=== PATIENT | female | born 1940 | race Caucasian/White ===

== ENCOUNTER 2016-04-19 09:14 | Outpatient (CLI) | payer MEDICARE, OTHER | END 2016-04-19 09:15 | disposition home or self-care (01) | DX: M85.88 Other specified disorders of bone density and structure, other site (principal) ==

== ENCOUNTER 2016-12-24 09:44 | Outpatient (CLI) | payer MEDICARE, OTHER ==
[2016-12-24 13:43] LABS: BASOPHILS % (AUTO) 0.4 %; EOSINOPHILS # (AUTO) 0.1 10^3/uL (0.0-0.7); EOSINOPHILS % (AUTO) 2.8 %; HCT - HEMATOCRIT 41.3 % (37.0-47.0); HGB - HEMOGLOBIN 13.9 g/dL (12.0-16.0); LYMPHOCYTES % (AUTO) 19.8 %; MEAN CORPUSCULAR HEMOGLOBIN 29.8 pg (27.0-31.0); MEAN CORPUSCULAR HGB CONC 33.6 g/dL (32.0-36.0); MEAN CORPUSCULAR VOLUME 88.6 fL (81.0-99.0); MONOCYTES # (AUTO) 0.4 10^3/uL (0.0-1.0); MONOCYTES % (AUTO) 7.8 %; NEUTROPHILS # (AUTO) 3.6 10^3/uL (1.5-6.6); NEUTROPHILS % (AUTO) 69.2 %; NUCLEATED RED BLOOD CELLS AUTO 0.1 /100WBC; RED BLOOD COUNT 4.66 10^6/uL (4.20-5.40); RED CELL DISTRIBUTION WIDTH 13.1 % (12.0-15.0); UNCORRECTED WHITE BLOOD COUNT 5.3 x10^3/uL; WHITE BLOOD COUNT 5.3 x10^3/uL (4.8-10.8)
[2016-12-24 13:58] LABS: ALBUMIN/GLOBULIN RATIO 1.5 (1.0-2.2); BILIRUBIN,TOTAL 0.7 mg/dL (0.2-1.0); CREATININE 0.6 mg/dL (0.4-1.0); TOTAL PROTEIN 7.2 g/dL (6.7-8.2)
[2016-12-24 14:54] LABS: HEMOGLOBIN A1C 0.57 g/dL
== END 2016-12-24 09:45 | disposition home or self-care (01) ==
LOC: LAB.WCP 09:44
PROVIDERS: ATTEND Family Medicine
DX: R73.01 Impaired fasting glucose (principal); Z79.899 Other long term (current) drug therapy
CPT/HCPCS: 36415; 80053; 83036; 85025

== ENCOUNTER 2017-01-23 10:07 | Outpatient (CLI) | payer MEDICARE, OTHER ==
--- NOTE | 2017-01-25 14:28 | Mammography Report ---
DIGITAL SCREENING MAMMOGRAM: 01/23/2017 CLINICAL INDICATION: A 76-year-old, for screening. COMPARISON: 01/2016, 04/2014, 03/2013, 03/2012, 03/2011, 02/2010. TECHNIQUE: Routine CC and MLO projections were obtained of the breasts. FINDINGS: Scattered fibroglandular tissue is present within the breasts. There are no dominant abner s, suspicious microcalcifications, or secondary signs of malignancy. In comparison to the previous st udies, there are no significant changes. ASSESSMENT: NO MAMMOGRAPHIC EVIDENCE OF MALIGNANCY. NO SIGNIFICANT INTERVAL CHANGES. RECOMMENDATION: Screening mammography is recommended annually. BIRADS category 1 - negative. STANDARD QUALIFYING STATEMENTS 1. This examination was reviewed with the aid of Computed-Aided Detection (CAD). 2. A negative or benign imaging report should not delay biopsy if clinically suspicious findings are present. Consider surgical consultation if warranted. More than 5% of cancers are not identified by i maging. 3. Dense breasts may obscure an underlying neoplasm. JOB #: [id number] EXT JOB #:[id number]
== END 2017-01-23 10:08 | disposition home or self-care (01) ==
LOC: DI.N 10:07
PROVIDERS: ATTEND Family Medicine
DX: Z12.31 Encounter for screening mammogram for malignant neoplasm of breast (principal)
CPT/HCPCS: 77067

== ENCOUNTER 2017-05-06 16:25 | Outpatient (CLI) | payer MEDICARE, OTHER | END 2017-05-06 16:26 | disposition home or self-care (01) | LOC: LAB.R 16:25 | PROVIDERS: ATTEND Family Medicine | DX: R10.9 Unspecified abdominal pain (principal) | CPT/HCPCS: 87086 ==

== ENCOUNTER 2017-05-13 14:49 | Outpatient (CLI) | payer MEDICARE, OTHER ==
--- NOTE | 2017-05-13 16:06 | CT Report ---
CT OF THE ABDOMEN AND PELVIS WITHOUT CONTRAST: 05/13/2017 INDICATION: Right flank pain, hematuria. TECHNIQUE: Axial CT images of the abdomen and pelvis were obtained without oral or intravenous contrast. No previous CT is available for comparison. FINDINGS: Limited evaluation of the lung bases demonstrates a moderate hiatal hernia. ABDOMEN: There is marked right hydronephrosis and hydroureter. An 1 mm calculus is seen in the upper pole of the right kidney. The left kidney demonstrates parapelvic cysts. Allowing for the lack of intravenous contrast enhancement, the liver demonstrates a likely cyst in the lateral left lobe. The spleen, pancreas and adrenal glands are unremarkable. The gallbladder is not dilated. No bowel dilatation, free gas, or free fluid is present. No abdominal adenopathy is seen. PELVIS: Right hydroureter continues to the bladder base, where there are two calculi in the distal right ureter, the more inferior measuring 7 mm and the more superior measuring 5 mm. Otherwise, the pelvic organs are unremarkable. Sigmoid diverticulosis is present, without CT evidence of diverticulitis. The appendix is seen in the right lower quadrant, and is normal in caliber. Osseous structures demonstrate degenerative changes. IMPRESSION: 1. RIGHT HYDRONEPHROSIS AND HYDROURETER, WITH TWO DISTAL RIGHT URETERIC STONES PRESENT, THE LARGER MEASURING 7 MM AND THE SMALLER MEASURING 5 MM. 2. MODERATE HIATAL HERNIA. 3. DIVERTICULOSIS WITHOUT CT EVIDENCE OF DIVERTICULITIS. In accordance with CT protocol optimization, one or more of the following dose reduction techniques were utilized for this exam: automated exposure control, adjustment of mA and/or KV based on patient size, or use of iterative reconstructive technique. TD: 05/13/2017 16:03
== END 2017-05-13 14:50 | disposition home or self-care (01) ==
LOC: DI 14:49
PROVIDERS: ATTEND Family Medicine
DX: N13.2 Hydronephrosis with renal and ureteral calculous obstruction (principal); K44.9 Diaphragmatic hernia without obstruction or gangrene; K57.30 Diverticulosis of large intestine without perforation or abscess without bleeding; R31.9 Hematuria, unspecified
CPT/HCPCS: 74176

== ENCOUNTER 2017-05-14 11:15 | Outpatient (CLI) | payer MEDICARE, OTHER | END 2017-05-14 11:16 | disposition home or self-care (01) | LOC: DI 11:15 | PROVIDERS: ATTEND Family Medicine | DX: I51.7 Cardiomegaly (principal) | CPT/HCPCS: 93306 ==

== ENCOUNTER 2017-05-24 16:57 | Outpatient (CLI) | payer MEDICARE, OTHER ==
--- NOTE | 2017-05-24 22:07 | Ultrasound Report ---
EXAM: RENAL ULTRASOUND EXAM DATE: 05/24/2017 05:50 PM. CLINICAL HISTORY: URETERAL CALCULUS. COMPARISON: 05/13/2017 CT. TECHNIQUE: Real-time scanning was performed with static images obtained. FINDINGS: Right Kidney: 11.6 x 4.9 x 5.2 cm. Normal echotexture with no stones, contour-deforming masses, or hy dronephrosis. Hydronephrosis seen on prior CT has resolved. Simple cyst measuring 1.2 cm. Left Kidney: 12.3 x 6.0 x 6.2 cm. Mild hydronephrosis. Normal echotexture with no stones or contour-d eforming masses. Bladder: Bilateral jets seen. The prevoid bladder volume was 45.8 cc. The postvoid bladder volume was 0 cc. Stone dependently within the bladder measures up to 1.5 cm. Other: None. IMPRESSION: 1. Right hydronephrosis has resolved since the CT of 05/13/2017. There is stone dependently in the bl adder that was likely the previous obstructing right ureteral stone. 2. Mild left hydronephrosis as before. [facility] Referring Provider Line: [phone] SITE ID: [id number]
== END 2017-05-24 16:58 | disposition home or self-care (01) ==
LOC: DI 16:57
PROVIDERS: ATTEND Physician Assistant
DX: N13.30 Unspecified hydronephrosis (principal); N21.0 Calculus in bladder
CPT/HCPCS: 76770

== ENCOUNTER 2018-04-15 12:16 | Outpatient (CLI) | payer MEDICARE, OTHER ==
--- NOTE | 2018-04-16 10:05 | Mammography Report ---
Reason: SCREENING MAMMO Procedure Date: 04/15/2018 Accession Number: [id number] / [id number] Procedure: [facility] - Screening Mammo w/[place] CPT Code: FULL RESULT: EXAM: Screening Mammo w/[place] DATE: 04/15/2018 12:51 PM CLINICAL HISTORY: Screening encounter. No reported risk factors. TECHNIQUE: Bilateral CC and MLO views were obtained. COMPARISON: 01/23/2017 through 04/16/2013. FINDINGS: The breasts demonstrate diffuse fatty replacement bilaterally. No suspicious masses, clustered microcalcifications, or regions of architectural distortion are identified. IMPRESSION: Negative examination RECOMMENDATION: Routine annual screening unless otherwise clinically indicated. BIRADS CATEGORY 1: Negative STANDARD QUALIFYING STATEMENTS: 1. This examination was not reviewed with the aid of Computer-Aided Detection (CAD). 2. A negative or benign imaging report should not preclude biopsy if clinically suspicious findings are present. 3. Dense breasts may obscure an underlying neoplasm. 4. This examination was reviewed with the aid of 3D breast imaging (tomosynthesis).
== END 2018-04-15 12:17 | disposition home or self-care (01) ==
LOC: DI 12:16
DX: Z12.31 Encounter for screening mammogram for malignant neoplasm of breast (principal)
CPT/HCPCS: 77063; 77067

== ENCOUNTER 2018-12-23 08:00 | Outpatient (CLI) | payer MEDICARE, OTHER ==
[2018-12-23 18:41] LABS: BASOPHILS % (AUTO) 0.6 %; EOSINOPHILS # (AUTO) 0.1 10^3/uL (0.0-0.7); EOSINOPHILS % (AUTO) 2.7 %; HGB - HEMOGLOBIN 14.2 g/dL (12.0-16.0); LYMPHOCYTES # (AUTO) 1.1 10^3/uL (1.5-3.5); LYMPHOCYTES % (AUTO) 21.5 %; MEAN CORPUSCULAR HEMOGLOBIN 29.3 pg (27.0-31.0); MEAN CORPUSCULAR HGB CONC 30.9 g/dL (32.0-36.0); MEAN CORPUSCULAR VOLUME 94.8 fL (81.0-99.0); MEAN PLATELET VOLUME 10.7 fL (7.9-10.8); MONOCYTES # (AUTO) 0.5 10^3/uL (0.0-1.0); MONOCYTES % (AUTO) 8.8 %; NEUTROPHILS # (AUTO) 3.4 10^3/uL (1.5-6.6); NEUTROPHILS % (AUTO) 66.2 %; PLT - PLATELET COUNT 246 10^3/uL (130-450); RED BLOOD COUNT 4.85 10^6/uL (4.20-5.40); WHITE BLOOD COUNT 5.1 x10^3/uL (4.8-10.8)
[2018-12-23 19:01] LABS: HB2 TOTAL 15.2 g/dL; HEMOGLOBIN A1C 0.54 g/dL; HEMOGLOBIN A1C % 5.4 % (4.6-6.2)
[2018-12-23 19:04] LABS: ALBUMIN 4.4 g/dL (3.2-5.5); ALBUMIN/GLOBULIN RATIO 1.8 (1.0-2.2); BILIRUBIN,TOTAL 0.9 mg/dL (0.2-1.0); CREATININE 0.7 mg/dL (0.4-1.0); TOTAL PROTEIN 6.9 g/dL (6.7-8.2)
== END 2018-12-23 23:59 | disposition home or self-care (01) ==
LOC: LAB.WCP 08:00
PROVIDERS: ATTEND Family Medicine
DX: R73.01 Impaired fasting glucose (principal); M85.80 Other specified disorders of bone density and structure, unspecified site
CPT/HCPCS: 36415; 80053; 83036; 85025

== ENCOUNTER 2019-03-26 09:06 | Outpatient (CLI) | payer MEDICARE, OTHER ==
--- NOTE | 2019-03-27 15:05 | Mammography Report ---
Reason: ROUTINE MAMMO Procedure Date: 03/26/2019 Accession Number: [id number] / [id number] Procedure: [facility] - Screening Mammo Dig Bilat CPT Code: Final Report FULL RESULT: EXAM: Screening Mammo Dig Bilat DATE: 03/26/2019 9:42 AM CLINICAL HISTORY: The patient is a 78-year-old asymptomatic female. Second degree family history breast cancer. TECHNIQUE: (B) - Bilateral CC and MLO views were obtained. COMPARISON: 01/23/2017, 01/20/2016, 04/23/2014, 04/16/2013 PARENCHYMAL PATTERN: (A) - The breasts demonstrate scattered fibroglandular densities bilaterally. FINDINGS: The pattern of nodular asymmetry is stable given positional variation. There are no suspicious masses, calcifications, or areas of distortion. IMPRESSION: Negative examination. BI-RADS category 1. RECOMMENDATION: (ANNUAL) - Recommend routine annual screening mammography. BI-RADS CATEGORY: (1) - Negative. STANDARD QUALIFYING STATEMENTS: A negative or benign imaging report should not preclude biopsy if clinically suspicious findings are present. Dense breasts may obscure an underlying neoplasm.
== END 2019-03-26 09:07 | disposition home or self-care (01) ==
LOC: DI.N 09:06
DX: Z12.31 Encounter for screening mammogram for malignant neoplasm of breast (principal); Z80.3 Family history of malignant neoplasm of breast
CPT/HCPCS: 77067

== ENCOUNTER 2019-11-12 07:00 | Outpatient (CLI) | payer MEDICARE, OTHER ==
[2019-11-12 18:06] LABS: BASOPHILS % (AUTO) 0.7 %; EOSINOPHILS # (AUTO) 0.2 10^3/uL (0.0-0.7); EOSINOPHILS % (AUTO) 3.9 %; HGB - HEMOGLOBIN 14.3 g/dL (12.0-16.0); LYMPHOCYTES % (AUTO) 17.8 %; MEAN CORPUSCULAR HEMOGLOBIN 29.4 pg (27.0-31.0); MEAN CORPUSCULAR HGB CONC 31.4 g/dL (32.0-36.0); MEAN CORPUSCULAR VOLUME 93.8 fL (81.0-99.0); MONOCYTES # (AUTO) 0.5 10^3/uL (0.0-1.0); MONOCYTES % (AUTO) 9.2 %; NEUTROPHILS # (AUTO) 3.7 10^3/uL (1.5-6.6); NEUTROPHILS % (AUTO) 68.2 %; PLT - PLATELET COUNT 253 10^3/uL (130-450); RED BLOOD COUNT 4.86 10^6/uL (4.20-5.40); RED CELL DISTRIBUTION WIDTH 12.8 % (12.0-15.0); WHITE BLOOD COUNT 5.4 x10^3/uL (4.8-10.8)
[2019-11-12 18:24] LABS: ALBUMIN 4.2 g/dL (3.2-5.5); ALBUMIN/GLOBULIN RATIO 1.6 (1.0-2.2); BILIRUBIN,TOTAL 0.9 mg/dL (0.2-1.0); CALCIUM 9.2 mg/dL (8.5-10.3); CREATININE 0.7 mg/dL (0.4-1.0); TOTAL PROTEIN 6.9 g/dL (6.7-8.2)
== END 2019-11-12 23:59 | disposition home or self-care (01) ==
LOC: LAB.WCP 07:00
PROVIDERS: ATTEND Family Medicine
DX: R19.7 Diarrhea, unspecified (principal); Z20.828 Contact with and (suspected) exposure to other viral communicable diseases
CPT/HCPCS: 36415; 80053; 83516; 83690; 85025; 86255; U0004; 81599

== ENCOUNTER 2019-11-12 13:25 | Outpatient (CLI) | payer MEDICARE, OTHER | END 2019-11-12 23:59 | disposition home or self-care (01) | LOC: LAB.R 13:25 | PROVIDERS: ATTEND Family Medicine | DX: R19.7 Diarrhea, unspecified (principal); Z20.828 Contact with and (suspected) exposure to other viral communicable diseases ==

== ENCOUNTER 2019-12-03 12:45 | Outpatient (CLI) | payer MEDICARE, OTHER | END 2019-12-03 23:59 | disposition home or self-care (01) | LOC: LAB.R 12:45 | PROVIDERS: ATTEND Family Medicine | DX: N39.0 Urinary tract infection, site not specified (principal) | CPT/HCPCS: 87086; 87181 ==

== ENCOUNTER 2020-03-29 09:17 | Outpatient (CLI) | payer MEDICARE, OTHER ==
--- NOTE | 2020-03-30 12:59 | Mammography Report ---
BILATERAL DIGITAL SCREENING MAMMOGRAM 3D/2D: 03/29/2020 CLINICAL: Routine screening. Comparison is made to exams dated: 03/26/2019 mammogram, 04/15/2018 mammogram, 01/23/2017 mammogram, 01/20/2016 mammogram, 04/23/2014 mammogram, and 04/16/2013 mammogram - [facility]. There are scattered fibroglandular elements in both breasts. No significant masses, calcifications, or other findings are seen in either breast. There has been no significant interval change. IMPRESSION: NEGATIVE There is no mammographic evidence of malignancy. A 1 year screening mammogram is recommended. This exam was interpreted at Station ID: [id number]. NOTE: For mammograms, a report in lay terms will be sent to the patient. Approximately 15% of breast malignancies will not be visualized mammographically. In the management of a palpable breast mass, a negative mammogram must not discourage biopsy of a clinically suspicious lesion. Electronically Signed By: Ryan davis/laurie:03/29/2020 11:57:12 ACR BI-RADS Category 1: Negative 3341F PARENCHYMAL PATTERN: (A) - The breast(s) demonstrate(s) scattered fibroglandular densities. BI-RADS CATEGORY: (1) - 1 RECOMMENDATION: (ANNUAL) - Recommend routine annual screening mammography. [id number] 1 year screening LATERALITY: (B)
== END 2020-03-29 09:18 | disposition home or self-care (01) ==
LOC: DI.N 09:17
DX: Z12.31 Encounter for screening mammogram for malignant neoplasm of breast (principal)
CPT/HCPCS: 77067

== ENCOUNTER 2020-05-02 08:00 | Outpatient (CLI) | payer MEDICARE, OTHER | END 2020-05-02 23:59 | disposition home or self-care (01) | LOC: LAB.WCP 08:00 | PROVIDERS: ATTEND Family Medicine | DX: N39.0 Urinary tract infection, site not specified (principal) | CPT/HCPCS: 87086; 87181 ==

== ENCOUNTER 2020-06-25 10:14 | Outpatient (CLI) | payer MEDICARE, OTHER | END 2020-06-25 23:59 | disposition home or self-care (01) | LOC: LAB.R 10:14 | PROVIDERS: ATTEND Family Medicine | DX: N39.0 Urinary tract infection, site not specified (principal) | CPT/HCPCS: 87086; 87181 ==

== ENCOUNTER 2020-08-02 08:00 | Outpatient (CLI) | payer MEDICARE, OTHER ==
[2020-08-02 18:03] LABS: BASOPHILS % (AUTO) 0.8 %; EOSINOPHILS # (AUTO) 0.1 10^3/uL (0.0-0.7); EOSINOPHILS % (AUTO) 2.7 %; HGB - HEMOGLOBIN 13.8 g/dL (12.0-16.0); LYMPHOCYTES # (AUTO) 1.1 10^3/uL (1.5-3.5); LYMPHOCYTES % (AUTO) 20.9 %; MEAN CORPUSCULAR HEMOGLOBIN 29.3 pg (27.0-31.0); MEAN CORPUSCULAR HGB CONC 30.7 g/dL (32.0-36.0); MEAN CORPUSCULAR VOLUME 95.5 fL (81.0-99.0); MEAN PLATELET VOLUME 10.9 fL (7.9-10.8); MONOCYTES # (AUTO) 0.5 10^3/uL (0.0-1.0); MONOCYTES % (AUTO) 9.5 %; NEUTROPHILS # (AUTO) 3.4 10^3/uL (1.5-6.6); NEUTROPHILS % (AUTO) 65.7 %; PLT - PLATELET COUNT 246 10^3/uL (130-450); RED BLOOD COUNT 4.71 10^6/uL (4.20-5.40); RED CELL DISTRIBUTION WIDTH 12.8 % (12.0-15.0); WHITE BLOOD COUNT 5.2 x10^3/uL (4.8-10.8)
[2020-08-02 18:17] LABS: ALBUMIN 4.2 g/dL (3.2-5.5); ALBUMIN/GLOBULIN RATIO 1.6 (1.0-2.2); ALKALINE PHOSPHATASE 61 IU/L (42-121); ALT ALANINE AMINOTRANSFERASE 12 IU/L (10-60); AST ASPARTATE AMINOTRANSFERASE 22 IU/L (10-42); BILIRUBIN,TOTAL 1.2 mg/dL (0.2-1.0); BUN - BLOOD UREA NITROGEN 13 mg/dL (6-20); CALCIUM 9.1 mg/dL (8.5-10.3); CARBON DIOXIDE - CO2 28 mmol/L (21-32); CHLORIDE 104 mmol/L (101-111); CHOL/HDL RATIO 2.8 (<4.4); CHOLESTEROL 181 mg/dL; CREATININE 0.7 mg/dL (0.4-1.0); GFR - MDRD 80 (>89); GLUCOSE 89 mg/dL (70-100); HDL CHOLESTEROL 65 mg/dL; LDL CHOLESTEROL,CALCULATED 85 mg/dL; LDL/HDL RATIO 1.3 (<4.4); POTASSIUM 4.3 mmol/L (3.5-5.0); SODIUM 141 mmol/L (135-145); TOTAL PROTEIN 6.8 g/dL (6.7-8.2); TRIGLYCERIDES 156 mg/dL; VLDL CHOLESTEROL 31 mg/dL
[2020-08-02 20:07] LABS: ESTIMATED AVERAGE GLUCOSE 111 mg/dL (70-100); HEMOGLOBIN A1c% 5.5 % (4.27-6.07)
== END 2020-08-02 23:59 | disposition home or self-care (01) ==
LOC: LAB.WCP 08:00
PROVIDERS: ATTEND Family Medicine
DX: R03.0 Elevated blood-pressure reading, without diagnosis of hypertension (principal); R73.01 Impaired fasting glucose
CPT/HCPCS: 36415; 80053; 80061; 83036; 83721; 85025

== ENCOUNTER 2022-04-25 10:48 | Outpatient (CLI) | payer MEDICARE, OTHER ==
--- NOTE | 2022-04-26 08:25 | Mammography Report ---
BILATERAL DIGITAL SCREENING MAMMOGRAM 3D/2D: 04/25/2022 CLINICAL: Routine screening. Comparison is made to exams dated: 03/29/2020 mammogram, 03/26/2019 mammogram, 04/15/2018 mammogram, 01/23/2017 mammogram, 01/20/2016 mammogram, and 04/23/2014 mammogram - [facility]. Both breasts are almost entirely fatty (category a/<25% glandular tissue). There are benign calcifications in the left breast. No significant masses, calcifications, or other findings are seen in either breast. There has been no significant interval change. IMPRESSION: BENIGN There is no mammographic evidence of malignancy. A 1 year screening mammogram is recommended. Based on the Tyrer Cuzick model (a risk assessment model) the patients lifetime risk is 0.5% and her 10 year risk is 0.0%. According to the ACR, ACS, and NCCN guidelines, an annual breast MRI exam darío g with mammogram is recommended if the patients lifetime risk is 20% or greater. This exam was interpreted at Station ID: [id number]. NOTE: For mammograms, a report in lay terms will be sent to the patient. Approximately 15% of breast malignancies will not be visualized mammographically. In the management of a palpable breast mass, a negative mammogram must not discourage biopsy of a clinically suspicious lesion. Electronically Signed By: Charleen casas/laurie:04/25/2022 15:48:04 ACR BI-RADS Category 2: Benign Finding(s) 3342F PARENCHYMAL PATTERN: (F) - The breast(s) demonstrate(s) diffuse fatty replacement. BI-RADS CATEGORY: (2) - 2 RECOMMENDATION: (ANNUAL) - Recommend routine annual screening mammography. [id number] 1 year screening LATERALITY: (B)
== END 2022-04-25 10:49 | disposition home or self-care (01) ==
LOC: DI.N 10:48
DX: Z12.31 Encounter for screening mammogram for malignant neoplasm of breast (principal)

== ENCOUNTER 2022-04-25 11:17 | Outpatient (CLI) | payer MEDICARE, OTHER ==
[2022-04-25 17:51] LABS: BASOPHILS % (AUTO) 0.7 %; EOSINOPHILS # (AUTO) 0.2 10^3/uL (0.0-0.7); EOSINOPHILS % (AUTO) 2.6 %; HCT - HEMATOCRIT 44.4 % (37.0-47.0); LYMPHOCYTES # (AUTO) 1.1 10^3/uL (1.5-3.5); LYMPHOCYTES % (AUTO) 19.7 %; MEAN CORPUSCULAR HEMOGLOBIN 29.5 pg (27.0-31.0); MEAN CORPUSCULAR HGB CONC 31.5 g/dL (32.0-36.0); MEAN CORPUSCULAR VOLUME 93.7 fL (81.0-99.0); MEAN PLATELET VOLUME 11.2 fL (7.9-10.8); MONOCYTES # (AUTO) 0.5 10^3/uL (0.0-1.0); MONOCYTES % (AUTO) 8.5 %; NEUTROPHILS # (AUTO) 3.9 10^3/uL (1.5-6.6); NEUTROPHILS % (AUTO) 68.3 %; PLT - PLATELET COUNT 294 10^3/uL (130-450); RED BLOOD COUNT 4.74 10^6/uL (4.20-5.40); RED CELL DISTRIBUTION WIDTH 12.7 % (12.0-15.0); WHITE BLOOD COUNT 5.7 x10^3/uL (4.8-10.8)
[2022-04-25 18:10] LABS: ALBUMIN 4.1 g/dL (3.2-5.5); ALBUMIN/GLOBULIN RATIO 1.3 (1.0-2.2); ALKALINE PHOSPHATASE 50 IU/L (42-121); ALT ALANINE AMINOTRANSFERASE 10 IU/L (10-60); AST ASPARTATE AMINOTRANSFERASE 22 IU/L (10-42); BILIRUBIN,TOTAL 1.2 mg/dL (0.2-1.0); BUN - BLOOD UREA NITROGEN 17 mg/dL (6-20); CARBON DIOXIDE - CO2 31 mmol/L (21-32); CHLORIDE 105 mmol/L (101-111); CHOL/HDL RATIO 2.6 (<4.4); CHOLESTEROL 148 mg/dL; CREATININE 0.7 mg/dL (0.4-1.0); GFR - MDRD 80 (>89); GLUCOSE 97 mg/dL (70-100); HDL CHOLESTEROL 57 mg/dL; LDL CHOLESTEROL,CALCULATED 73 mg/dL; LDL/HDL RATIO 1.3 (<4.4); POTASSIUM 4.1 mmol/L (3.5-5.0); SODIUM 143 mmol/L (135-145); TOTAL PROTEIN 7.2 g/dL (6.7-8.2); TRIGLYCERIDES 91 mg/dL; VLDL CHOLESTEROL 18 mg/dL
[2022-04-25 18:18] LABS: THYROID STIMULATING HORMONE 2.15 uIU/mL (0.34-5.60)
== END 2022-04-25 11:18 | disposition home or self-care (01) ==
LOC: LAB.N 11:17
PROVIDERS: ATTEND Physician Assistant
DX: E78.1 Pure hyperglyceridemia (principal); M85.80 Other specified disorders of bone density and structure, unspecified site; K21.9 Gastro-esophageal reflux disease without esophagitis
CPT/HCPCS: 36415; 80053; 80061; 83721; 84443; 85025

== ENCOUNTER 2023-01-16 10:32 | Outpatient (CLI) | payer MEDICARE, OTHER | END 2023-01-16 10:33 | disposition critical access hospital (66) | LOC: EMS 10:32 | DX: R47.81 Slurred speech (principal); R26.9 Unspecified abnormalities of gait and mobility | CPT/HCPCS: A0425; A0429 ==

== ENCOUNTER 2023-01-16 10:48 | Inpatient (IN) | payer MEDICARE, OTHER ==
--- NOTE | 2023-01-16 11:23 | CT Report ---
PROCEDURE: Head W/O Stroke Protocol INDICATIONS: L sided symptoms and dysarthria TECHNIQUE: Noncontrast 4.5 mm thick angled axial sections acquired from the foramen magnum to the vertex, with c oronal reformats. For radiation dose reduction, the following was used: automated exposure control, adjustment of mA and/or kV according to patient size. COMPARISON: None. FINDINGS: Image quality: Excellent. CSF spaces: Basal cisterns are patent. No extra-axial fluid collections. Ventricles are normal in size and shape. Brain: No midline shift. No intracranial masses or hemorrhage. [place]-white matter interface is norm al. Subcortical and periventricular hypodensities are consistent with microvascular ischemic disease and age-related cerebral volume loss. Skull and face: Calvarium and visualized facial bones are intact, without suspicious lesions. Sinuses: Visualized sinuses and mastoids are clear. IMPRESSION: 1. No acute intracranial abnormality. 2. Microvascular ischemic disease and age-related cerebral volume loss. This study fulfills neurological imaging criteria for inclusion or exclusion of acute stroke therapie s based on available published neurological imaging guidelines. Reviewed by: Yair Maier on 01/16/2023 11:22 AM PDT Approved by: Yair Maier on 01/16/2023 11:22 AM PDT Station ID: [id number]
[2023-01-16 11:25] LABS: BASOPHILS % (AUTO) 0.9 %; EOSINOPHILS # (AUTO) 0.1 10^3/uL (0.0-0.7); EOSINOPHILS % (AUTO) 2.9 %; HCT - HEMATOCRIT 42.7 % (37.0-47.0); HGB - HEMOGLOBIN 13.7 g/dL (12.0-16.0); LYMPHOCYTES # (AUTO) 0.8 10^3/uL (1.5-3.5); LYMPHOCYTES % (AUTO) 18.1 %; MEAN CORPUSCULAR HEMOGLOBIN 29.5 pg (27.0-31.0); MEAN CORPUSCULAR HGB CONC 32.1 g/dL (32.0-36.0); MONOCYTES # (AUTO) 0.4 10^3/uL (0.0-1.0); MONOCYTES % (AUTO) 9.7 %; NEUTROPHILS # (AUTO) 3.1 10^3/uL (1.5-6.6); NEUTROPHILS % (AUTO) 68.2 %; PLT - PLATELET COUNT 228 10^3/uL (130-450); RED BLOOD COUNT 4.64 10^6/uL (4.20-5.40); RED CELL DISTRIBUTION WIDTH 12.3 % (12.0-15.0); WHITE BLOOD COUNT 4.5 x10^3/uL (4.8-10.8)
--- NOTE | 2023-01-16 11:35 | CT Report ---
PROCEDURE: CT Angio Head/Neck INDICATIONS: L sided symptoms and dysarthria TECHNIQUE: PROCEDURE: CT Angio Head/Neck INDICATIONS: L sided symptoms and dysarthria CONTRAST: 80ml Omni 300 TECHNIQUE: After the administration of intravenous contrast, 1 mm thick sections acquired through the [place]. Postcontrast 4.5 mm thick sections then re-acquired from the foramen magnum to the vertex. 3-dimensional lbecofq-kjnstsacg-daslxprzof (MIP) and/or volume rendering reformats were acquired of [facility] central intracranial vasculature. For radiation dose reduction, the following was used: automate d exposure control, adjustment of mA and/or kV according to patient size. COMPARISON: CT head dated 01/16/2023 FINDINGS: Image quality: Diagnostic. Anterior circulation: Intracranial internal carotid arteries are normal in size and flow. The flow within the paired anterior cerebral arteries is normal and symmetric. The flow within the middle cer ebral arteries is normal and symmetric. The anterior communicating artery is seen. No aneurysms are seen. Posterior circulation: Visualized portions of the vertebral arteries demonstrate normal caliber, and join to form a normal appearing basilar artery. The left vertebral artery is dominant. Flow within [facility] posterior cerebral arteries is normal and symmetric. No aneurysms are seen. CSF spaces: Ventricles are normal in size and shape. Basal cisterns are patent. No extra-axial flu id collections. Brain: No midline shift. No intracranial bleeds or masses. [place]-white matter interface appears int act. Skull and face: Calvarium and facial bones appear intact, without suspicious lesions. Sinuses: Visualized sinuses and mastoids are clear. Lung apices: Bilateral apical scarring. IMPRESSION: PICC line 1. No large vessel occlusion. 2. CTA of the head and neck demonstrate no significant stenosis. No aneurysm or dissection. Reviewed by: Yair Maier on 01/16/2023 11:34 AM PDT Approved by: Yari Maier on 01/16/2023 11:34 AM PDT Station ID: [id number]
[2023-01-16 11:42] LABS: ALBUMIN 3.9 g/dL (3.2-5.5); BILIRUBIN,TOTAL 0.8 mg/dL (0.2-1.0); CALCIUM 8.9 mg/dL (8.5-10.3); CREATININE 0.7 mg/dL (0.6-1.3); POTASSIUM 3.8 mmol/L (3.5-4.5); TOTAL PROTEIN 5.9 g/dL (6.4-8.9)
--- NOTE | 2023-01-16 12:05 | ED Physician Documentation ---
PD HPI FOCAL NEURO - Stated complaint Stated Complaint: CODE STROKE - Chief complaint Chief Complaint: Neuro - History obtained from History obtained from: Patient - History of Present Illness Timing - onset: Enter time (729), Today Timing - duration: Hours Timing - details: Still present Time of symptom onset unknown: Time of onset unknown Severity of deficit: Moderate Weakness: Arm, Leg, Left Associated symptoms: No: Headache, Nausea / vomiting, Seizure, Syncope, Fall, Head injury, Chest pain, Neck pain, Back pain, Fever Baseline status: positive: A&OX3, ambulatory, indep Similar symptoms before: Has not had sx before Recently seen: Not recently seen - Additional information Additional information: Tatianna Xie is an 82-year-old female who lives alone and she indicates that last night she was able to drive to the store she felt a little bit off driving home from the store she went to purchase candy for holding she did not get any visitors she had to get up from her chair multiple times to go to the bathroom and this morning when she awoke she felt that she was having a difficult time with weakness on the left side she found that she was unable to walk down the lucio without holding onto the wall. She noted her speech to be slurred she is able to understand and speak what she was trying to speak but the words came out slurred. She noticed this about 7:30 in the morning she eventually called the ambulance and was brought to the hospital with slurred speech and left-sided weakness. Her weakness is subtle but she is not able to stand and walk without assistance. . Review of Systems Constitutional: denies: Fever Ears: denies: Ear pain Nose: denies: Congestion Throat: denies: Sore throat Cardiac: denies: Chest pain / pressure, Palpitations Respiratory: denies: Dyspnea, Cough GI: denies: Abdominal Pain, Nausea, Vomiting, Constipation, Diarrhea : denies: Dysuria, Frequency Skin: denies: Rash Musculoskeletal: denies: Neck pain, Back pain, Extremity pain Neurologic: reports: Focal weakness, Difficulty speaking. denies: Generalized weakness, Numbness, Confused, Altered mental status, Headache, Head injury, LOC PD PAST MEDICAL HISTORY - Past Medical History Past Medical History: Yes GI: GERD - Past Surgical History Past Surgical History: Yes - Present Medications Home Medications: Ambulatory Orders Medication Instructions Recorded Confirmed Omeprazole [PriLOSEC] 20 mg PO DAILY 08/14/14 01/16/23 - Allergies Allergies/Adverse Reactions: Allergies Allergy/AdvReac Type Severity Reaction Status Date / Time Penicillins Allergy Rash Verified 01/16/23 11:19 - Social History Does the pt smoke?: No Smoking Status: Never smoker Does the pt drink ETOH?: Yes Does the pt have substance abuse?: No - Immunizations Immunizations are current?: Yes Immunizations: TDAP >10years/unknown - POLST Patient has POLST: No PD ED PE NORMAL - Vitals Vital signs reviewed: Yes (hypertensive ) - General General: Alert and oriented X 3, No acute distress, Well developed/nourished - HEENT HEENT: Atraumatic, PERRL, EOMI - Neck Neck: Supple, no meningeal sign, No bony TTP - Cardiac Cardiac: RRR, No murmur - Respiratory Respiratory: No respiratory distress, Clear bilaterally - Abdomen Abdomen: Normal bowel sounds, Soft, Non tender, Non distended, No organomegaly - Back Back: No CVA TTP, No spinal TTP - Derm Derm: Normal color, Warm and dry, No rash - Extremities Extremities: No deformity, No edema - Neuro Neuro: Alert and oriented X 3, 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, No sensory deficit, Normal speech, Other (weakness to the left LE and incoordination of the left hand) Eye Opening: Spontaneous Motor: Obeys Commands Verbal: Oriented GCS Score: 15 - Psych Psych: Normal mood, Normal affect NIHSS - Time Time: 11:15 - Level of Consciousness Level of consciousness: (0) Alert, Keenly responsive LOC Questions: (0) Answers both Q's correct LOC Commands: (0) Performs both correctly - Gaze Best Gaze: (0) Normal - Visual Visual: (0) No loss - Facial Palsy Facial Palsy: (0) Normal, symmetrical movement - Motor Arms (both separate) Motor Arm (right): (0) No drift Motor Arm (left): (1) Drift - Motor Legs (both separate) Motor Leg (right): (0) No drift Motor Leg (left): (1) Drift - Limb Ataxia Limb Ataxia: (2) Present in 2 limbs - Sensory Sensory: (0) Normal - Best Language Best Language: (0) No aphasia - Dysarthria Dysarthria: (1) [id number] dysarthria - Extinction and Inattention (formally neg Extinction and inattention: (0) No abnormality - Total Score/Results Total Score/Result: 5 Results - Vitals Vitals: Vital Signs - 24 hr 01/16/23 01/16/23 01/16/23 11:15 11:25 12:32 Temperature 37.1 C Heart Rate 74 73 75 Respiratory 20 20 19 Rate Blood Pressure 162/87 H 162/87 H 167/81 H O2 Saturation 97 97 99 01/16/23 01/16/23 14:17 16:41 Temperature Heart Rate 74 Respiratory 19 15 Rate Blood Pressure 157/107 H O2 Saturation 98 Oxygen O2 Source Room air - EKG (time done) 1130 EKG releavant findings:: EKG personally interpreted by author of this note. Relevant findings are: Rate: Rate (enter#) (73) [place]: LAD QRS: Poor R wave progression Compare to prior EKG: Old EKG unavailable Computer interpretation: Agree with computer - Labs Labs: Laboratory Tests 01/16/23 01/16/23 01/16/23 11:19 11:19 12:25 WBC 4.5 L RBC 4.64 Hgb 13.7 Hct 42.7 MCV 92.0 MCH 29.5 MCHC 32.1 RDW 12.3 Plt Count 228 MPV 10.0 Neut # (Auto) 3.1 Lymph # (Auto) 0.[address] [place] # (Auto) 0.4 Eos # (Auto) 0.1 Baso # (Auto) 0.0 Absolute Nucleated RBC 0.00 Nucleated RBC % 0.0 Sodium 139 Potassium 3.8 Chloride 107 Carbon Dioxide 26 Anion Gap 6.0 BUN 20 Creatinine 0.7 Estimated GFR (MDRD) 80 L Glucose 110 H Calcium 8.9 Total Bilirubin 0.8 AST 13 ALT 7 L Alkaline Phosphatase 52 Total Protein 5.9 L Albumin 3.9 Globulin 2.0 L Albumin/Globulin Ratio 2.0 Lipase 19 Urine Color YELLOW Urine Clarity CLEAR Urine pH 7.0 Ur Specific [place] <=1.005 Urine Protein NEGATIVE Urine Glucose (UA) NEGATIVE Urine Ketones NEGATIVE Urine Occult Blood NEGATIVE Urine Nitrite NEGATIVE Urine Bilirubin NEGATIVE Urine Urobilinogen 4 H Ur Leukocyte Esterase TRACE H Urine RBC None Seen Urine WBC 11-25 H Urine WBC Clumps PRESENT Ur Squamous Epith Cells FEW Squamous Urine Bacteria Moderate H Ur Microscopic Review INDICATED Urine Culture Comments INDICATED Nasal Adenovirus (PCR) Nasal B. parapertussis DNA (PCR) Nasal Coronavir 229E PCR Nasal Coronavir HKU1 PCR Nasal Coronavir NL63 PCR Nasal Coronavir OC43 PCR Nasal Enterovir/Rhinovir PCR Nasal Influenza B PCR Nasal Influenza A PCR Nasal Parainfluen 1 PCR Nasal Parainfluen 2 PCR Nasal Parainfluen 3 PCR Nasal Parainfluen 4 PCR Nasal RSV (PCR) Nasal B.pertussis DNA PCR Nasal C.pneumoniae (PCR) Timothy Human Metapneumo PCR Nasal M.pneumoniae (PCR) Nasal SARS-CoV-2 (PCR) 01/16/23 13:40 WBC RBC Hgb Hct MCV MCH MCHC RDW Plt Count MPV Neut # (Auto) Lymph # (Auto) [place] # (Auto) Eos # (Auto) Baso # (Auto) Absolute Nucleated RBC Nucleated RBC % Sodium Potassium Chloride Carbon Dioxide Anion Gap BUN Creatinine Estimated GFR (MDRD) Glucose Calcium Total Bilirubin AST ALT Alkaline Phosphatase Total Protein Albumin Globulin Albumin/Globulin Ratio Lipase Urine Color Urine Clarity Urine pH Ur Specific [place] Urine Protein Urine Glucose (UA) Urine Ketones Urine Occult Blood Urine Nitrite Urine Bilirubin Urine Urobilinogen Ur Leukocyte Esterase Urine RBC Urine WBC Urine WBC Clumps Ur Squamous Epith Cells Urine Bacteria Ur Microscopic Review Urine Culture Comments Nasal Adenovirus (PCR) NOT DETECTED Nasal B. parapertussis DNA (PCR) NOT DETECTED Nasal Coronavir 229E PCR NOT DETECTED Nasal Coronavir HKU1 PCR NOT DETECTED Nasal Coronavir NL63 PCR NOT DETECTED Nasal Coronavir OC43 PCR NOT DETECTED Nasal Enterovir/Rhinovir PCR NOT DETECTED Nasal Influenza B PCR NOT DETECTED Nasal Influenza A PCR NOT DETECTED Nasal Parainfluen 1 PCR NOT DETECTED Nasal Parainfluen 2 PCR NOT DETECTED Nasal Parainfluen 3 PCR NOT DETECTED Nasal Parainfluen 4 PCR NOT DETECTED Nasal RSV (PCR) NOT DETECTED Nasal B.pertussis DNA PCR NOT DETECTED Nasal C.pneumoniae (PCR) NOT DETECTED Timothy Human Metapneumo PCR NOT DETECTED Nasal M.pneumoniae (PCR) NOT DETECTED Nasal SARS-CoV-2 (PCR) NOT DETECTED - Rads (name of study) head Relevant Findings:: Prelim report reviewed (Impression: 1. No acute intracranial abnormality. Microvascular ischemic disease and age-related cerebral volume loss.), EMP independent interpretation of test angios head and neck Relevant Findings:: Prelim report reviewed (Impression: No large vessel occlusion. CTA of head and neck demonstrate no significant stenosis. No aneurysm or dissection.) MR head Relevant Findings:: Prelim report reviewed (Impression: 1. Acute small lacunar infarction involving the right basal ganglia extending into the deep white matter. Age-related volume loss and mild to moderate small vessel ischemic change.) Procedures - IVC sono (time) 1214 Bedside IVC sono: IVC measures (cm) (1.12), IVC collapsed c insp (cm) (complete), Dehydration (est 1+ liter deficit) PD Medical Decision Making - ED course Complexity details: reviewed old records, reviewed results, re-evaluated patient, considered differential, d/w patient Reviewed Lab Results: We reviewed a complete blood count showing a white blood cell count depressed at 4.5 hemoglobin and hematocrit and platelets were normal the patient's white blood cell count usually runs in the low range normal for her is 4.6-5.7 electrolytes kidney and liver function are all normal urinalysis shows a clear yellow urine with trace leukocyte Estrace and 11-25 white blood cells per high- power field and moderate bacteria and it did make grade 4 culture a nasal swab was negative for for 23 viruses. I interpret these laboratory test indicate the patient has a urinary tract infection and otherwise stable or normal constitution. Social Determinants of Health: The patient lives alone and is not a candidate for discharge from the hospital city hospital ED course: 82-year-old female with strokelike symptoms is shown to have a lacunar infarct with MR today. The patient was evaluated in the emergency department and found to be dehydrated and saline was administered. She was up to the commode multiple times and despite her initial claim that she had no urinary symptoms she later indicates that she was up quite a bit last night to go to the bathroom. And she is up quite a bit today to go to the bathroom. Her urine appears infected. She is administered a gram of Rocephin intravenously as well as aspirin. She has had CT angios of the head and neck without specific remediable abnormalities. Today we are tasked with caring for an 82-year-old female with a lacunar infarct that is left her with some difficulty with ambulation. She will still need admission for monitoring for atrial fibrillation and PT and OT for discharge to home or admission to a facility. Dr. Christensen is consulted in the case and graciously agrees to admit the patient for continued care of a completed stroke. Departure - Departure Disposition: 66 [facility] DC/Xfer Clinical Impression: Lacunar infarct, acute, Dehydration Urinary tract infection Qualifiers: Urinary tract infection type: acute cystitis Hematuria presence: without hematuria Qualified Code(s): N30.00 - Acute cystitis without hematuria Condition: Stable
[2023-01-16] MEDS ORDERED: SODIUM CHLORIDE 0.9% 1,000 ML IV STA (12:16)
[2023-01-16 12:39] LABS: BILIRUBIN,URINE NEGATIVE (NEGATIVE); GLUCOSE, URINE (UA) NEGATIVE (NEGATIVE); KETONES,URINE (UA) NEGATIVE (NEGATIVE); LEUKOCYTE ESTERASE, URINE TRACE (NEGATIVE); NITRITE,URINE NEGATIVE (NEGATIVE); OCCULT BLOOD,URINE NEGATIVE (NEGATIVE); PROTEIN,URINE NEGATIVE (NEGATIVE); UROBILINOGEN,URINE 4 E.U./dL (NORMAL)
[2023-01-16 12:41] LABS: CLARITY,URINE CLEAR (CLEAR)
[2023-01-16 12:52] LABS: BACTERIA,URINE Moderate /HPF (None Seen); RBC,URINE None Seen /HPF (0-5); SQUAMOUS EPITHELIAL CELL,UR FEW Squamous (<= Few); WBC CLUMPS,URINE PRESENT
[2023-01-16] MEDS ORDERED: iohexoL-300 100 ML VIAL IVP ONE (13:26)
[2023-01-16 15:02] LABS: B. PARAPERTUSSIS- RESP PCR PAN NOT DETECTED; B. PERTUSSIS- RESP PCR PANEL NOT DETECTED; C. PNEUMONIAE- RESP PCR PANEL NOT DETECTED; CORONAVIRUS 229E-RESP PCR NOT DETECTED; CORONAVIRUS HKU1-RESP PCR NOT DETECTED; CORONAVIRUS NL63-RESP PCR NOT DETECTED; CORONAVIRUS OC43-RESP PCR NOT DETECTED; HUMAN METAPNEUMOVIRUS NOT DETECTED; INFLUENZA A- RESP PCR PANEL NOT DETECTED; INFLUENZA B - RESP PCR PANEL NOT DETECTED; M. PNEUMONIAE- RESP PCR PANEL NOT DETECTED; PARAINFLUENZA VIRUS 1 NOT DETECTED; PARAINFLUENZA VIRUS 2 NOT DETECTED; PARAINFLUENZA VIRUS 3 NOT DETECTED; PARAINFLUENZA VIRUS 4 NOT DETECTED; RHINOVIRUS/ENTEROVIRUS NOT DETECTED; RSV- RESP PCR PANEL NOT DETECTED; SARS-CoV-2 -RESP PCR PANEL NOT DETECTED
--- NOTE | 2023-01-16 15:53 | MRI Report ---
PROCEDURE: BRAIN WO INDICATIONS: L leg weakness, L arm incoordination, slurred TECHNIQUE: Noncontrast axial T1 spin echo, axial T2 fast spin echo, sagittal and axial FLAIR, coronal T2 fast sp in echo, axial gradient echo, axial diffusion and ADC through the brain. COMPARISON: CTA head and neck dated 01/16/2023. FINDINGS: Image quality: Excellent. CSF Spaces: Basal cisterns are patent. No extra-axial fluid collections. Ventricles are normal in size and shape. Brain: No intracranial masses or hemorrhage. [place]/white matter interface is normal. Brainstem appe ars normal. Diffusion weighted abnormality consistent with acute relatively small lacunar infarction involving the right basal ganglia extending into the deep white matter. No chronic ischemic insults. Age-related volume loss and mild to moderate, age-appropriate small vessel ischemic change. Normal in travascular flow voids are present. Skull and face: Calvarium has normal marrow signal. Orbits appear normal. Sinuses: Sinuses and mastoids are clear. IMPRESSION: 1. Acute small lacunar infarction involving the right basal ganglia extending into the deep white mat ter. 2. Age-related volume loss and mild to moderate small vessel ischemic change. Reviewed by: Adrian White MD on 01/16/2023 3:51 PM PDT Approved by: Adrian White MD on 01/16/2023 3:51 PM PDT Station ID: [id number]
[2023-01-16] MEDS ORDERED: ASPIRIN CHEW 81 MG TABLET PO STA (16:43)
[2023-01-16] MEDS ORDERED: cefTRIAXone 1 GM in SODIUM CHLORIDE 0.9% MINIBAG 100 ML IV STA (16:57)
[2023-01-16] MEDS ORDERED: SODIUM CHLORIDE FLUSH 0.9% 10 ML SYRINGE IVP PRN (17:23)
--- NOTE | 2023-01-16 17:39 | HISTORY & PHYSICAL EXAMINATION ---
Chief Complaint - Chief Complaint Chief Complaint: Abnormal speech and gait History of Present Illness - Admitted From Admitted From:: ED - History Obtained From History obtained from: ED provider and the patient - History of Present Illness HPI Comment/Other: This is an 82-year-old white female who lives alone at home, still drives a car. She only takes omeprazole for GERD. Yesterday while driving to get [employer]een candy she said that "something was off." She then was up to the bathroom every hour over night to urinate. Then this morning when she awoke for the day she noticed that she had to lean on the wall to walk otherwise she had poor balance and she noticed that her speech was not normal. The symptoms began at 0730. She called the ambulance and was in the ER within 3 hours. The work-up in the ED for stroke included a CTA of the head and neck that showed no large vessel occlusions or bleed. An MRI was done that showed an acute lacunar infarct in the right basal ganglion with extension into the deep portions of the brain. The patient received 4 baby aspirin. Because her symptoms were of mild dysarthria and mild left arm and leg weakness, she was not felt to be a candidate for tPA and she had no large vessels occluded to be a candidate for transfer for intervention. The ED provider spoke to me about this patient. Her IVC eval showed that she was dehydrated and so she received saline boluses and was also started on IV ceftriaxone after her urinalysis showed evidence of a UTI. The patient will be admitted to the Hospitalist service to evaluate and treat a completed stroke and an acute UTI. I spoke to her about her CODE BLUE wishes and she wants to be a DNR. History - Past Medical History Cardiovascular: reports: None Respiratory: reports: None Neuro: reports: None Endocrine/Autoimmune: reports: None GI: reports: GERD DIRECTOR OF OUTREACH: reports: None : reports: None HEENT: reports: None Psych: reports: None Musculoskeletal: reports: None Derm: reports: None - Past Surgical History Other past surgical history: No surgeries - Family & Social History Family History Comment/Other: She has 3 healthy children, 1 lives in [place], [place] and the 3rd in [place] Living arrangement: At home Living Situation: Alone Social History Notes: She does not smoke cigarettes and never smoked. No marijuana use. She drinks wine, only on social occasions. - Substance History Use: Uses substance without health or social issues: NONE - POLST Patient has POLST: No POLST Status: DNR Meds/Allgy - Home Medications Home Medications: Ambulatory Orders Medication Instructions Recorded Confirmed Omeprazole [PriLOSEC] 20 mg PO DAILY 08/14/14 01/16/23 - Allergies Allergies/Adverse Reactions: Allergies Allergy/AdvReac Type Severity Reaction Status Date / Time Penicillins Allergy Rash Verified 01/16/23 11:19 Review of Systems - Neurological Neurological: reports: Focal weakness, Abnormal gait, Slurred speech - All Other Systems All Other Systems: reports: Reviewed and negative Exam - Vital Signs Vital Signs: Vital Signs x48h Temp Pulse Resp BP Pulse Ox 01/16/23 17:29 75 21 171/95 H 100 01/16/23 16:41 74 15 157/107 H 98 01/16/23 14:17 19 01/16/23 12:32 75 19 167/81 H 99 01/16/23 11:25 73 20 162/87 H 97 01/16/23 11:15 37.1 C 74 20 162/87 H 97 - Physical Exam General Appearance: positive: Mild distress (Appears anxious), Other (Obese eld erly female) Eyes Bilateral: positive: Normal inspection, EOMI, No lid inflammation ENT: positive: ENT inspection nml Neck: positive: Nml inspection, No JVD Respiratory: positive: No respiratory distress, Breath sounds nml Cardiovascular: positive: Regular rate & rhythm, No murmur Abdomen: positive: Non-tender, Nml bowel sounds, Other (Obese) Skin: positive: Warm, Dry, Other (Large bruise or port wine stain on R leg) Extremities: positive: Non-tender, No pedal edema Neurologic/Psychiatric: positive: Oriented x3, CN's nml (2-12), Other (L leg 2/5 strength, L arm has drift, speech is normal but some word finding difficulty) Conclusion/Plan - Problem List (1) Lacunar infarct, acute Conclusion/Plan: Patient was not felt to be a tPA candidate because of mild neurodeficit. She had no large vessel occlusions to be transferred for vascular intervention. The patient does not have a history of hypertension but is running systolic BP of 160-170 currently Plan: Admit the patient, monitor for A-fib on telemetry Allow permissive hypertension for 24 to 48 hours. Obtain a swallow screen by nursing neurochecks q4h Obtain PT, OT and Speech Therapy evaluations and treatments Continue with daily baby aspirin lifelong, daily Plavix for 3 weeks, and start statin now STAT Check a fasting lipid panel and treat per GDMT Obtain Echo with bubble study to evaluate for cardiac source of embolus or an intracardiac shunt (2) Urinary tract infection Conclusion/Plan: Patient had urinary frequency last night and her UA is abnormal today, consistent with an acute UTI Plan: We will continue her on empiric IV ceftriaxone Await urine culture results We will also obtain blood cultures and await those results to tailor antibiotics Qualifiers: Urinary tract infection type: acute cystitis Hematuria presence: without hematuria Qualified Code(s): N30.00 - Acute cystitis without hematuria (3) GERD (gastroesophageal reflux disease) Conclusion/Plan: I will order continuation of her Omeprazole - Lab Results Fish Bones: 01/17/23 05:30 01/17/23 05:30 - Diagnostic Imaging Results Diagnostic Imaging Results: positive: Final report reviewed - Other Other Results/Comments: Attestation: The patient is expected to be hospitalized for greater than 2 midnights and is expected to be discharged or transferred to another facility within 96 hours: Yes.
[2023-01-16] MEDS ORDERED: ATORVASTATIN 40 MG TABLET PO STA (17:45)
[2023-01-16] MEDS: SODIUM CHLORIDE 0.9% 1,000 ML IV SCH (19:14)
[2023-01-17] MEDS: SODIUM CHLORIDE FLUSH 0.9% 10 ML SYRINGE IVP SCH ×3 (00:52→20:25)
[2023-01-17] MEDS: ACETAMINOPHEN 325 MG TABLET PO PRN ×3 (02:15→20:25)
[2023-01-17 05:48] LABS: BASOPHILS # (AUTO) 0.1 10^3/uL (0.0-0.1); BASOPHILS % (AUTO) 0.7 %; EOSINOPHILS # (AUTO) 0.2 10^3/uL (0.0-0.7); EOSINOPHILS % (AUTO) 3.1 %; HCT - HEMATOCRIT 42.4 % (37.0-47.0); HGB - HEMOGLOBIN 13.8 g/dL (12.0-16.0); LYMPHOCYTES % (AUTO) 14.6 %; MEAN CORPUSCULAR HEMOGLOBIN 29.3 pg (27.0-31.0); MEAN CORPUSCULAR HGB CONC 32.5 g/dL (32.0-36.0); MONOCYTES # (AUTO) 0.6 10^3/uL (0.0-1.0); NEUTROPHILS # (AUTO) 5.2 10^3/uL (1.5-6.6); NEUTROPHILS % (AUTO) 73.5 %; PLT - PLATELET COUNT 248 10^3/uL (130-450); RED BLOOD COUNT 4.71 10^6/uL (4.20-5.40); RED CELL DISTRIBUTION WIDTH 12.2 % (12.0-15.0)
[2023-01-17 06:08] LABS: ALBUMIN/GLOBULIN RATIO 1.7 (1.0-2.2); ALKALINE PHOSPHATASE 57 IU/L (42-121); ALT ALANINE AMINOTRANSFERASE 7 IU/L (10-60); AST ASPARTATE AMINOTRANSFERASE 12 IU/L (10-42); BUN - BLOOD UREA NITROGEN 12 mg/dL (6-20); CALCIUM 8.7 mg/dL (8.5-10.3); CARBON DIOXIDE - CO2 25 mmol/L (21-32); CHLORIDE 109 mmol/L (101-111); CHOL/HDL RATIO 2.7 (<4.4); CHOLESTEROL 151 mg/dL; CREATININE 0.6 mg/dL (0.6-1.3); GFR - MDRD 95 (>89); GLUCOSE 113 mg/dL (74-104); HDL CHOLESTEROL 55 mg/dL; LDL CHOLESTEROL,CALCULATED 77 mg/dL; LDL/HDL RATIO 1.4 (<4.4); MAGNESIUM 1.6 mg/dL (1.7-2.3); POTASSIUM 3.8 mmol/L (3.5-4.5); SODIUM 139 mmol/L (135-145); TOTAL PROTEIN 6.4 g/dL (6.4-8.9); TRIGLYCERIDES 97 mg/dL (48-352); VLDL CHOLESTEROL 19 mg/dL
[2023-01-17] MEDS: PANTOPRAZOLE 40 MG TABLET PO SCH (06:09)
[2023-01-17] MEDS: cefTRIAXone 1 GM in SODIUM CHLORIDE 0.9% MINIBAG 100 ML IV SCH (08:42)
[2023-01-17] MEDS: ASPIRIN EC 81 MG TABLET PO SCH (08:43)
[2023-01-17] MEDS: CLOPIDOGREL 75 MG TABLET PO SCH (08:43)
--- NOTE | 2023-01-17 12:10 | PHARMACY PROGRESS NOTE ---
- Best Possible Medication History Admit Date and Time: 01/16/23 1724 Processed by: Pharmacy Medication History completed: Yes Patient Interview: Completed Secondary Source(s): Insurance records ([facility] As the person ultimately responsible for medication therapy, providers are able to order a medication from an existing home medication list in [facility] via the "Reconcile Routine" prior to Confirmation of that medication by lead performance support analyst. Such practice is discouraged except when the physician, in their clinical judgment, deems that a medical need exists for a medication without regard to previous use.
--- NOTE | 2023-01-17 12:56 | PROVIDER PROGRESS NOTE ---
Assessment/Plan - Problem List (1) Lacunar infarct, acute Assessment/Plan: In the ER, patient was not felt to be a tPA candidate because of mild neurodeficit, and she had no large vessel occlusions to be transferred for vascular intervention. The patient does not have a history of hypertension but is running systolic BP of 170 today. Today we learned she was already on baby aspirin daily Telem has not shown Afib Her fasting LDL came back 77 Her Echo with bubble study showed normal LVEF, and no embolus or intracardiac shunt Plan: Allow permissive hypertension today yet Cont neurochecks q4h Will order carotid Dopplers since the lower neck was not visualized in the CTA neck Awaiting PT, OT and Speech Therapy evaluations and treatments Continue with daily baby aspirin lifelong, and Plavix may need to be lifelong, since her stroke happened on aspirin Cont Lipitor 40 mg qpm Remain on telemetry I updated the pt and her 2 children at bedside (2) Urinary tract infection Conclusion/Plan: Patient had urinary frequency and her UA was abnormal, consistent with an acute UTI. All labs were reviewed. Today the urine cx is growing a gram neg gunjan. Bld cx is neg to date. Plan: We will continue her on empiric IV ceftriaxone Await urine culture ident and sens to tailor antibx Qualifiers: Urinary tract infection type: acute cystitis Hematuria presence: without hematuria Qualified Code(s): N30.00 - Acute cystitis without hematuria (3) GERD (gastroesophageal reflux disease) Conclusion/Plan: Cont Omeprazole or its equivalent here - Current Meds Current Meds: Current Medications Generic Name Dose Route Start Last Admin Trade Name Freq PRN Reason Stop Dose Admin Acetaminophen 650 mg 01/16/23 17:23 01/17/23 02:15 Acetaminophen 325 Mg Tablet PO 650 mg Q4HR PRN Administration Pain 1 to 4, or Fever Aspirin 81 mg 01/17/23 09:00 01/17/23 08:43 Aspirin Ec 81 Mg Tablet PO 81 mg DAILY IFEANYI Administration Clopidogrel Bisulfate 75 mg 01/17/23 09:00 01/17/23 08:43 Clopidogrel 75 Mg Tablet PO 75 mg DAILY IFEANYI Administration Sodium Chloride 1,000 mls @ 60 mls/hr 01/16/23 18:00 01/16/23 19:14 Normal Saline 0.9% IV 60 mls/hr .[id number] IFEANYI Administration Ceftriaxone Sodium 1 gm/ 100 mls @ 200 mls/hr 01/17/23 09:00 01/17/23 09:50 Sodium Chloride IV Infused DAILY IFEANYI Infusion Pantoprazole Sodium 40 mg 01/17/23 07:00 01/17/23 06:09 Pantoprazole 40 Mg Tablet PO 40 mg QDAC IFEANYI Administration Sodium Chloride 10 ml 01/17/23 01:00 01/17/23 08:43 Sodium Chloride Flush 0.9% 10 Ml Syringe IVP 10 ml 0100,0900,1700 IFEANYI Administration - Lab Result Fish Bone Diagrams: 01/17/23 05:30 01/17/23 05:30 - Additional Planning My Orders: My Active Orders 01/16/23 Dinner Cardiac Diet [DIET] 01/16/23 17:23 Telemetry- [RC] Q4HR Vital Signs [RC] Q4HR Acetaminophen [Tylenol] 650 mg PO Q4HR PRN Ondansetron Inj [Zofran Inj] 4 mg IVP Q6HR PRN Sodium Chloride Flush 0.9% [Normal Saline Flush 0.9%] 10 ml IVP PRN PRN 01/16/23 17:24 Activity Orders [RC] Q2HR IO [RC] IOSHIFT Incentive Spirometry - RT [RC] TID Initiate Bowel Care Protocol [RC] .protocol Initiate Personal Care Protoco [RC] .protocol Oxygen Therapy [RC] .PRN Code Status [OTHERS] Routine Condition of Patient [OTHERS] Routine DVT Prophylaxis [OTHERS] Routine 01/16/23 17:25 Daily Weight [RC] 0600 01/16/23 17:26 Initiate Line Care Protocol [RC] QSHIFT SCDs [RC] QSHIFT 01/16/23 17:45 CULTURE, BLOOD #1 [RM] Stat 01/16/23 18:00 Sodium Chloride 0.9% [Normal Saline 0.9%] 1,000 ml IV 60 mls/hr 01/16/23 19:06 Neuro Check [RC] Q4H 01/17/23 01:00 Sodium Chloride Flush 0.9% [Normal Saline Flush 0.9%] 10 ml IVP 0100,0900,1700 01/17/23 07:00 Pantoprazole [Protonix] 40 mg PO QDAC 01/17/23 09:00 Aspirin EC [Ecotrin] 81 mg PO DAILY Clopidogrel [Plavix] 75 mg PO DAILY cefTRIAXone [Rocephin] 1 gm Sodium Chloride 0.9% Minibag [Normal Saline 0.9% Minibag] 100 ml IV DAILY 01/17/23 21:00 Atorvastatin [Lipitor] 40 mg PO QPM 01/18/23 05:00 BMP - BASIC METABOLIC PANEL [CHEM] DAILYLAB Subjective - Subjective Patient Reports: Other (Unchanged severe L leg weakness, L arm uncoordination and intermittent slurred speeach) Objective Vital Signs: Vital Signs - 24 hr 01/16/23 01/16/23 01/16/23 14:17 16:41 17:29 Temperature Heart Rate 74 75 Heart Rate [ Brachial] Heart Rate [ Radial] Respiratory 19 15 21 Rate Blood Pressure 157/107 H 171/95 H Blood Pressure [Left Brachial artery] Blood Pressure [Left Radial artery] Blood Pressure [Right Brachial artery] O2 Saturation 98 100 01/16/23 01/16/23 01/16/23 18:22 19:02 21:00 Temperature 36.5 C 36.5 C Heart Rate 75 Heart Rate [ Brachial] Heart Rate [ 74 70 Radial] Respiratory 21 20 20 Rate Blood Pressure 178/99 H Blood Pressure [Left Brachial artery] Blood Pressure 171/91 H 159/79 H [Left Radial artery] Blood Pressure [Right Brachial artery] O2 Saturation 99 99 94 01/16/23 01/17/23 01/17/23 23:44 04:00 05:27 Temperature 36.6 C 36.6 C 36.8 C Heart Rate Heart Rate [ 71 74 74 Brachial] Heart Rate [ Radial] Respiratory 18 18 20 Rate Blood Pressure Blood Pressure 152/67 H 173/88 H [Left Brachial artery] Blood Pressure [Left Radial artery] Blood Pressure 173/88 H [Right Brachial artery] O2 Saturation 96 94 94 01/17/23 01/17/23 08:00 09:00 Temperature 3.6 C L 36.6 C Heart Rate Heart Rate [ 81 81 Brachial] Heart Rate [ Radial] Respiratory 18 20 Rate Blood Pressure Blood Pressure [Left Brachial artery] Blood Pressure [Left Radial artery] Blood Pressure 133/80 H 133/80 H [Right Brachial artery] O2 Saturation 92 92 Oxygen O2 Source Room air I&O (Last 24 Hrs): Intake and Output Totals x24h 01/15/23 01/16/23 01/17/23 23:59 23:59 23:59 Intake Total 1400 460 Output Total 650 300 Balance 750 160 General: Alert, Oriented x3 HEENT: EOMI, Mucous membr. moist/pink Neck: Supple, No JVD Neuro: Alert, Other (L leg 1/5 str, L arm has drift, speech is slow w/ word finding difficulty) Cardiovascular: Regular rate Respiratory: No respiratory distress Abdomen: Soft, Other (Obese) Extremities: No clubbing, No edema, No tenderness/swelling - Results Results: Laboratory Results WBC 7.0 x10^3/uL (4.8-10.8) 01/17/23 05:30 RBC 4.71 10^6/uL (4.20-5.40) 01/17/23 05:30 Hgb 13.8 g/dL (12.0-16.0) 01/17/23 05:30 Hct 42.4 % (37.0-47.0) 01/17/23 05:30 MCV 90.0 fL (81.0-99.0) 01/17/23 05:30 MCH 29.3 pg (27.0-31.0) 01/17/23 05:30 MCHC 32.5 g/dL (32.0-36.0) 01/17/23 05:30 RDW 12.2 % (12.0-15.0) 01/17/23 05:30 Plt Count 248 10^3/uL (130-450) 01/17/23 05:30 MPV 10.0 fL (7.9-10.8) 01/17/23 05:30 Neut # (Auto) 5.2 10^3/uL (1.5-6.6) 01/17/23 05:30 Lymph # (Auto) 1.0 10^3/uL (1.5-3.5) L 01/17/23 05:30 [place] # (Auto) 0.6 10^3/uL (0.0-1.0) 01/17/23 05:30 Eos # (Auto) 0.2 10^3/uL (0.0-0.7) 01/17/23 05:30 Baso # (Auto) 0.1 10^3/uL (0.0-0.1) 01/17/23 05:30 Absolute Nucleated RBC 0.00 x10^3/uL 01/17/23 05:30 Nucleated RBC % 0.0 /100WBC 01/17/23 05:30 Sodium 139 mmol/L (135-145) 01/17/23 05:30 Potassium 3.8 mmol/L (3.5-4.5) 01/17/23 05:30 Chloride 109 mmol/L (101-111) 01/17/23 05:30 Carbon Dioxide 25 mmol/L (21-32) 01/17/23 05:30 Anion Gap 5.0 (6-13) L 01/17/23 05:30 BUN 12 mg/dL (6-20) 01/17/23 05:30 Creatinine 0.6 mg/dL (0.6-1.3) 01/17/23 05:30 Estimated GFR (MDRD) 95 (>89) 01/17/23 05:30 Glucose 113 mg/dL (74-104) H 01/17/23 05:30 Calcium 8.7 mg/dL (8.5-10.3) 01/17/23 05:30 Phosphorus 3.3 mg/dL (2.5-5.0) 01/16/23 17:45 Magnesium 1.6 mg/dL (1.7-2.3) L 01/17/23 05:30 Total Bilirubin 1.0 mg/dL (0.2-1.0) 01/17/23 05:30 AST 12 IU/L (10-42) 01/17/23 05:30 ALT 7 IU/L (10-60) L 01/17/23 05:30 Alkaline Phosphatase 57 IU/L (42-121) 01/17/23 05:30 Total Protein 6.4 g/dL (6.4-8.9) 01/17/23 05:30 Albumin 4.0 g/dL (3.2-5.5) 01/17/23 05:30 Globulin 2.4 g/dL (2.1-4.2) 01/17/23 05:30 Albumin/Globulin Ratio 1.7 (1.0-2.2) 01/17/23 05:30 Triglycerides 97 mg/dL (48-352) 01/17/23 05:30 Cholesterol 151 mg/dL (-200) 01/17/23 05:30 LDL Cholesterol, Calc 77 mg/dL (-129) 01/17/23 05:30 VLDL Cholesterol 19 mg/dL 01/17/23 05:30 HDL Cholesterol 55 mg/dL (60-) L 01/17/23 05:30 LDL/HDL Ratio 1.4 (<4.4) 01/17/23 05:30 Cholesterol/HDL Ratio 2.7 (<4.4) 01/17/23 05:30 Lipase 19 U/L (11-82) 01/16/23 11:19 Urine Color YELLOW 01/16/23 12:25 Urine Clarity CLEAR (CLEAR) 01/16/23 12:25 Urine pH 7.0 PH (5.0-7.5) 01/16/23 12:25 Ur Specific [place] <=1.005 (1.002-1.030) 01/16/23 12:25 Urine Protein NEGATIVE mg/dL (NEGATIVE) 01/16/23 12:25 Urine Glucose (UA) NEGATIVE mg/dL (NEGATIVE) 01/16/23 12:25 Urine Ketones NEGATIVE mg/dL (NEGATIVE) 01/16/23 12:25 Urine Occult Blood NEGATIVE (NEGATIVE) 01/16/23 12:25 Urine Nitrite NEGATIVE (NEGATIVE) 01/16/23 12:25 Urine Bilirubin NEGATIVE (NEGATIVE) 01/16/23 12:25 Urine Urobilinogen 4 E.U./dL (NORMAL) H 01/16/23 12:25 Ur Leukocyte Esterase TRACE (NEGATIVE) H 01/16/23 12:25 Urine RBC None Seen /HPF (0-5) 01/16/23 12:25 Urine WBC 11-25 /HPF (0-5) H 01/16/23 12:25 Urine WBC Clumps PRESENT 01/16/23 12:25 Ur Squamous Epith Cells FEW Squamous (<= Few) 01/16/23 12:25 Urine Bacteria Moderate /HPF (None Seen) H 01/16/23 12:25 Ur Microscopic Review INDICATED 01/16/23 12:25 Urine Culture Comments INDICATED 01/16/23 12:25 Nasal Adenovirus (PCR) NOT DETECTED 01/16/23 13:40 Nasal B. parapertussis DNA (PCR) NOT DETECTED 01/16/23 13:40 Nasal Coronavir 229E PCR NOT DETECTED 01/16/23 13:40 Nasal Coronavir HKU1 PCR NOT DETECTED 01/16/23 13:40 Nasal Coronavir NL63 PCR NOT DETECTED 01/16/23 13:40 Nasal Coronavir OC43 PCR NOT DETECTED 01/16/23 13:40 Nasal Enterovir/Rhinovir PCR NOT DETECTED 01/16/23 13:40 Nasal Influenza B PCR NOT DETECTED 01/16/23 13:40 Nasal Influenza A PCR NOT DETECTED 01/16/23 13:40 Nasal Parainfluen 1 PCR NOT DETECTED 01/16/23 13:40 Nasal Parainfluen 2 PCR NOT DETECTED 01/16/23 13:40 Nasal Parainfluen 3 PCR NOT DETECTED 01/16/23 13:40 Nasal Parainfluen 4 PCR NOT DETECTED 01/16/23 13:40 Nasal RSV (PCR) NOT DETECTED 01/16/23 13:40 Nasal B.pertussis DNA PCR NOT DETECTED 01/16/23 13:40 Nasal C.pneumoniae (PCR) NOT DETECTED 01/16/23 13:40 [place] Human Metapneumo PCR NOT DETECTED 01/16/23 13:40 Nasal M.pneumoniae (PCR) NOT DETECTED 01/16/23 13:40 Nasal SARS-CoV-2 (PCR) NOT DETECTED 01/16/23 13:40
[2023-01-17] MEDS: SODIUM CHLORIDE 0.9% 1,000 ML IV SCH (15:12)
[2023-01-17] MEDS: ATORVASTATIN 40 MG TABLET PO SCH (20:26)
--- NOTE | 2023-01-17 20:39 | Ultrasound Report ---
PROCEDURE: Carotid Doppler Complete INDICATIONS: CVA, eval for severe plaque/stenosis TECHNIQUE: Color and pulse Doppler interrogation was performed of both carotid systems, with image documentation and velocity measurements. COMPARISON: CT angiogram of the head and neck dated 01/16/2023 FINDINGS: Right side: Brachial blood pressure: 152/76 mm Hg. Common carotid artery peak systolic velocity: 52.28 cm/sec. Internal carotid artery peak systolic velocity: 60.14 cm/sec. Internal carotid artery end diastolic velocity: 16.01 cm/sec. External carotid artery peak systolic velocity: 85.16 cm/sec. ICA/CCA peak systolic ratio: 1.6 . [place] scale imaging description: Moderate atherosclerotic plaque. Moderately tortuous right internal carotid artery. Percent internal carotid artery stenosis: Nondiagnostic evaluation. Vertebral artery: Flow direction is antegrade. Left side: Nondiagnostic evaluation of the left carotid vasculature secondary to patient's inability to breath-h old as well as patient pain and discomfort. IMPRESSION: Nondiagnostic evaluation of the internal carotid arteries. The left side could not be int errogated. The right side was not well imaged although measured velocities within the common carotid artery, internal carotid artery and external carotid arteries are within normal limits. Normal ICA/CC A ratio on the right. The estimate of stenosis included in the report of the imaging study was calculated using the [facility]-end orsed standards of carotid artery stenosis. Reviewed by: Nicho Bernard MD on 01/17/2023 8:38 PM PDT Approved by: Nicho Bernard MD on 01/17/2023 8:38 PM PDT Station ID: [id number]
[2023-01-18] MEDS: SODIUM CHLORIDE FLUSH 0.9% 10 ML SYRINGE IVP SCH ×4 (00:37→23:57)
[2023-01-18 06:16] LABS: CALCIUM 8.9 mg/dL (8.5-10.3); CREATININE 0.6 mg/dL (0.6-1.3); POTASSIUM 3.6 mmol/L (3.5-4.5)
[2023-01-18] MEDS: PANTOPRAZOLE 40 MG TABLET PO SCH (06:37)
[2023-01-18] MEDS: ASPIRIN EC 81 MG TABLET PO SCH (09:41)
[2023-01-18] MEDS: CLOPIDOGREL 75 MG TABLET PO SCH (09:41)
[2023-01-18] MEDS: cefTRIAXone 1 GM in SODIUM CHLORIDE 0.9% MINIBAG 100 ML IV SCH (09:41)
[2023-01-18] MEDS: ACETAMINOPHEN 325 MG TABLET PO PRN (17:43)
--- NOTE | 2023-01-18 18:08 | PROVIDER PROGRESS NOTE ---
Assessment/Plan - Problem List (1) Lacunar infarct, acute Assessment/Plan: In the ER, patient was not felt to be a tPA candidate because of mild neurodeficit, and she had no large vessel occlusions to be transferred for vascular intervention. The patient does not have a history of hypertension but was running systolic BP of 170 after admission for 2 days. Today BP improved to 140/80 on its own. After admission we learned she was already on baby aspirin daily Telem has not shown Afib Her carotid Dopplers came back indeterminate because she could not lie flat due to SOB Her fasting LDL came back 77 Her Echo with bubble study showed normal LVEF, and no embolus or intracardiac shunt PT and OT evaluations recommend she has rehab at a SNF and she is agreeable. She will be choiced today Plan: Cont neurochecks q4h Cont PT and OT and awaiting Speech Therapy evaluations and treatments Continue with daily baby aspirin lifelong, and Plavix may need to be lifelong, since her stroke happened on aspirin Cont Lipitor 40 mg qpm Will re-order carotid Dopplers when she can lie flat Remain on telemetry I updated the pt and her 2 children at bedside (2) UTI due to Klebsiella species Assessment/Plan: Patient had urinary frequency and her UA was abnormal, consistent with an acute UTI. All labs were reviewed. Bld cx are neg to date. Urine cx is growing KLebsiella pneumoniae, resistant only to Ampic Plan: I will stop the IV ceftriaxone after today and start daily Levaquin tomorrow plus a probiotic Await blood culture results Qualifiers: Urinary tract infection type: acute cystitis Hematuria presence: without hematuria Qualified Code(s): N30.00 - Acute cystitis without hematuria (3) Paralysis of diaphragm Assessment/Plan: Since yesterday 01/17, the patient is short of breath and orthpneic, she is intermittently tachypneic. 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 She had been on BiPAP which helped her symptoms. She turned in her BiPAP machine after using it about 1 year. She used to have a [employer] in [place]. She never had pacing of the diaphragm done. She knows to sleep on her right side and not supine. Since being in here she has been only in a supine position. Her Echo showed normal LVEF. Her IV fluids were stopped yesterday Plan: She was advised to resume sleeping in a lateral position like she usually does at home Will order overnight continuous oximetry, in case she needs restart of CPAP while she is here, and for after DCh to a SNF. (4) GERD (gastroesophageal reflux disease) Conclusion/Plan: Cont Omeprazole or its equivalent while here - Current Meds Current Meds: Current Medications Generic Name Dose Route Start Last Admin Trade Name Freq PRN Reason Stop Dose Admin Acetaminophen 650 mg 01/16/23 17:23 01/18/23 17:43 Acetaminophen 325 Mg Tablet PO 650 mg Q4HR PRN Administration Pain 1 to 4, or Fever Aspirin 81 mg 01/17/23 09:00 01/18/23 09:41 Aspirin Ec 81 Mg Tablet PO 81 mg DAILY IFEANYI Administration Atorvastatin Calcium 40 mg 01/17/23 21:00 01/17/23 20:26 Atorvastatin 40 Mg Tablet PO 40 mg QPM IFEANYI Administration Clopidogrel Bisulfate 75 mg 01/17/23 09:00 01/18/23 09:41 Clopidogrel 75 Mg Tablet PO 75 mg DAILY IFEANYI Administration Pantoprazole Sodium 40 mg 01/17/23 07:00 01/18/23 06:37 Pantoprazole 40 Mg Tablet PO 40 mg QDAC IFEANYI Administration Sodium Chloride 10 ml 01/17/23 01:00 01/18/23 17:46 Sodium Chloride Flush 0.9% 10 Ml Syringe IVP 10 ml 0100,0900,1700 IFEANYI Administration - Lab Result Fish Bone Diagrams: 01/17/23 05:30 01/18/23 05:14 - Additional Planning My Orders: My Active Orders 01/17/23 21:00 Atorvastatin [Lipitor] 40 mg PO QPM 01/19/23 08:00 Saccharomyces Boulardii [Florastor] 250 mg PO BIDWM 01/19/23 09:00 levoFLOXacin [Levaquin] 750 mg PO DAILY Subjective - Subjective Patient Reports: Shortness of Breath (Orthopneic), Other (No improvement in speech, L arm clumsiness, or L leg weakness) Objective Vital Signs: Vital Signs - 24 hr 01/17/23 01/18/23 01/18/23 20:21 00:04 04:45 Temperature 36.5 C 36.8 C 36.6 C Heart Rate [ 80 81 79 Brachial] Respiratory 24 20 16 Rate Blood Pressure 166/90 H [Left Brachial artery] Blood Pressure 178/87 H 166/82 H [Right Brachial artery] O2 Saturation 94 92 96 01/18/23 01/18/23 13:00 16:50 Temperature 36.3 C L 36.4 C L Heart Rate [ 90 85 Brachial] Respiratory 18 12 Rate Blood Pressure [Left Brachial artery] Blood Pressure 137/86 H 145/91 H [Right Brachial artery] O2 Saturation 95 97 Oxygen O2 Source Room air I&O (Last 24 Hrs): Intake and Output Totals x24h 01/16/23 01/17/23 01/18/23 23:59 23:59 23:59 Intake Total 1400 2184 1500 Output Total 650 1650 900 Balance 750 534 600 General: Alert, Oriented x3 HEENT: Mucous membr. moist/pink, Other (L facial droop is less pronounced) Neck: Supple, No JVD Neuro: Alert, Other (word hesitation, L arm drift, L leg 1/5 strength) Cardiovascular: Regular rate, No murmurs Respiratory: Breath sounds nml Abdomen: Soft, No tenderness, Other (Obese) Extremities: No clubbing, No edema, No tenderness/swelling - Results Results: Laboratory Results WBC 7.0 x10^3/uL (4.8-10.8) 01/17/23 05:30 RBC 4.71 10^6/uL (4.20-5.40) 01/17/23 05:30 Hgb 13.8 g/dL (12.0-16.0) 01/17/23 05:30 Hct 42.4 % (37.0-47.0) 01/17/23 05:30 MCV 90.0 fL (81.0-99.0) 01/17/23 05:30 MCH 29.3 pg (27.0-31.0) 01/17/23 05:30 MCHC 32.5 g/dL (32.0-36.0) 01/17/23 05:30 RDW 12.2 % (12.0-15.0) 01/17/23 05:30 Plt Count 248 10^3/uL (130-450) 01/17/23 05:30 MPV 10.0 fL (7.9-10.8) 01/17/23 05:30 Neut # (Auto) 5.2 10^3/uL (1.5-6.6) 01/17/23 05:30 Lymph # (Auto) 1.0 10^3/uL (1.5-3.5) L 01/17/23 05:30 [place] # (Auto) 0.6 10^3/uL (0.0-1.0) 01/17/23 05:30 Eos # (Auto) 0.2 10^3/uL (0.0-0.7) 01/17/23 05:30 Baso # (Auto) 0.1 10^3/uL (0.0-0.1) 01/17/23 05:30 Absolute Nucleated RBC 0.00 x10^3/uL 01/17/23 05:30 Nucleated RBC % 0.0 /100WBC 01/17/23 05:30 Sodium 141 mmol/L (135-145) 01/18/23 05:14 Potassium 3.6 mmol/L (3.5-4.5) 01/18/23 05:14 Chloride 109 mmol/L (101-111) 01/18/23 05:14 Carbon Dioxide 25 mmol/L (21-32) 01/18/23 05:14 Anion Gap 7.0 (6-13) 01/18/23 05:14 BUN 10 mg/dL (6-20) 01/18/23 05:14 Creatinine 0.6 mg/dL (0.6-1.3) 01/18/23 05:14 Estimated GFR (MDRD) 95 (>89) 01/18/23 05:14 Glucose 105 mg/dL (74-104) H 01/18/23 05:14 Calcium 8.9 mg/dL (8.5-10.3) 01/18/23 05:14 Phosphorus 3.3 mg/dL (2.5-5.0) 01/16/23 17:45 Magnesium 1.6 mg/dL (1.7-2.3) L 01/17/23 05:30 Total Bilirubin 1.0 mg/dL (0.2-1.0) 01/17/23 05:30 AST 12 IU/L (10-42) 01/17/23 05:30 ALT 7 IU/L (10-60) L 01/17/23 05:30 Alkaline Phosphatase 57 IU/L (42-121) 01/17/23 05:30 Total Protein 6.4 g/dL (6.4-8.9) 01/17/23 05:30 Albumin 4.0 g/dL (3.2-5.5) 01/17/23 05:30 Globulin 2.4 g/dL (2.1-4.2) 01/17/23 05:30 Albumin/Globulin Ratio 1.7 (1.0-2.2) 01/17/23 05:30 Triglycerides 97 mg/dL (48-352) 01/17/23 05:30 Cholesterol 151 mg/dL (-200) 01/17/23 05:30 LDL Cholesterol, Calc 77 mg/dL (-129) 01/17/23 05:30 VLDL Cholesterol 19 mg/dL 01/17/23 05:30 HDL Cholesterol 55 mg/dL (60-) L 01/17/23 05:30 LDL/HDL Ratio 1.4 (<4.4) 01/17/23 05:30 Cholesterol/HDL Ratio 2.7 (<4.4) 01/17/23 05:30 Lipase 19 U/L (11-82) 01/16/23 11:19 Urine Color YELLOW 01/16/23 12:25 Urine Clarity CLEAR (CLEAR) 01/16/23 12:25 Urine pH 7.0 PH (5.0-7.5) 01/16/23 12:25 Ur Specific [place] <=1.005 (1.002-1.030) 01/16/23 12:25 Urine Protein NEGATIVE mg/dL (NEGATIVE) 01/16/23 12:25 Urine Glucose (UA) NEGATIVE mg/dL (NEGATIVE) 01/16/23 12:25 Urine Ketones NEGATIVE mg/dL (NEGATIVE) 01/16/23 12:25 Urine Occult Blood NEGATIVE (NEGATIVE) 01/16/23 12:25 Urine Nitrite NEGATIVE (NEGATIVE) 01/16/23 12:25 Urine Bilirubin NEGATIVE (NEGATIVE) 01/16/23 12:25 Urine Urobilinogen 4 E.U./dL (NORMAL) H 01/16/23 12:25 Ur Leukocyte Esterase TRACE (NEGATIVE) H 01/16/23 12:25 Urine RBC None Seen /HPF (0-5) 01/16/23 12:25 Urine WBC 11-25 /HPF (0-5) H 01/16/23 12:25 Urine WBC Clumps PRESENT 01/16/23 12:25 Ur Squamous Epith Cells FEW Squamous (<= Few) 01/16/23 12:25 Urine Bacteria Moderate /HPF (None Seen) H 01/16/23 12:25 Ur Microscopic Review INDICATED 01/16/23 12:25 Urine Culture Comments INDICATED 01/16/23 12:25 Nasal Adenovirus (PCR) NOT DETECTED 01/16/23 13:40 Nasal B. parapertussis DNA (PCR) NOT DETECTED 01/16/23 13:40 Nasal Coronavir 229E PCR NOT DETECTED 01/16/23 13:40 Nasal Coronavir HKU1 PCR NOT DETECTED 01/16/23 13:40 Nasal Coronavir NL63 PCR NOT DETECTED 01/16/23 13:40 Nasal Coronavir OC43 PCR NOT DETECTED 01/16/23 13:40 Nasal Enterovir/Rhinovir PCR NOT DETECTED 01/16/23 13:40 Nasal Influenza B PCR NOT DETECTED 01/16/23 13:40 Nasal Influenza A PCR NOT DETECTED 01/16/23 13:40 Nasal Parainfluen 1 PCR NOT DETECTED 01/16/23 13:40 Nasal Parainfluen 2 PCR NOT DETECTED 01/16/23 13:40 Nasal Parainfluen 3 PCR NOT DETECTED 01/16/23 13:40 Nasal Parainfluen 4 PCR NOT DETECTED 01/16/23 13:40 Nasal RSV (PCR) NOT DETECTED 01/16/23 13:40 Nasal B.pertussis DNA PCR NOT DETECTED 01/16/23 13:40 Nasal C.pneumoniae (PCR) NOT DETECTED 01/16/23 13:40 Timothy Human Metapneumo PCR NOT DETECTED 01/16/23 13:40 Nasal M.pneumoniae (PCR) NOT DETECTED 01/16/23 13:40 Nasal SARS-CoV-2 (PCR) NOT DETECTED 01/16/23 13:40
[2023-01-18] MEDS: ATORVASTATIN 40 MG TABLET PO SCH (19:53)
[2023-01-19] MEDS: PANTOPRAZOLE 40 MG TABLET PO SCH (06:28)
[2023-01-19] MEDS: ACETAMINOPHEN 325 MG TABLET PO PRN ×2 (06:28→18:58)
[2023-01-19] MEDS: SODIUM CHLORIDE FLUSH 0.9% 10 ML SYRINGE IVP SCH ×2 (08:57→16:34)
[2023-01-19] MEDS: ASPIRIN EC 81 MG TABLET PO SCH (08:57)
[2023-01-19] MEDS: SACCHAROMYCES BOULARDII 250 MG CAPSULE PO SCH ×2 (08:57→16:34)
[2023-01-19] MEDS: CLOPIDOGREL 75 MG TABLET PO SCH (08:57)
[2023-01-19] MEDS: levoFLOXacin 250 MG TABLET PO SCH (08:57)
--- NOTE | 2023-01-19 10:09 | XRAY Report ---
PROCEDURE: Chest 1 View X-Ray INDICATIONS: Hypoxia, Hx of paralyzed diaphragm TECHNIQUE: One view of the chest was acquired. COMPARISON: None. FINDINGS: Surgical changes and devices: None. Lungs and pleura: No pleural effusions or pneumothorax. Lungs are clear. Mediastinum: Mediastinal contours appear normal. Heart size is normal. Bones and chest wall: No suspicious bony lesions. Overlying soft tissues appear unremarkable. IMPRESSION: No acute process. Reviewed by: Jose Sherwood MD on 01/19/2023 10:08 AM PDT Approved by: Jose Sherwood MD on 01/19/2023 10:08 AM PDT Station ID: [id number]
[2023-01-19] MEDS: ONDANSETRON 4 MG/2 ML VIAL IVP PRN ×2 (10:41→16:52)
--- NOTE | 2023-01-19 12:49 | PROVIDER PROGRESS NOTE ---
Assessment/Plan - Problem List (1) Acute respiratory failure with hypoxia Assessment/Plan: The patient again had severe orthopnea overnight, she cannot lay supine. She gets somewhat better when she lays on her right lateral decubitus position. She de-saturated overnight and needed as much as 3 L O2 supplemental started per nasal cannula. Her Echo showed normal LVEF. Her IV fluids were stopped in case of overload A CXR was done today, it showed no infiltrate or edema The cause of her hypoxia is twofold: she has sleep apnea plus a paralyzed diaphragm Plan: See #2 & 3 below (2) Sleep apnea Assessment/Plan: I ordered overnight oximetry on this patient which she wore last night. I reviewed the plethysmography strips. The patient desaturated to 85% for over 5 minutes at one point. Her lowest pleth saturation was about 79% on room air Patient has a known diagnosis of sleep apnea. She used to have a CPAP machine but turned it in several years ago for unclear reason. Plan: I have ordered the hospital CPAP machine to be started here and used hs. The patient is agreeable I will order a new CPAP machine from a [facility]. Discussed with RT. We will await for the CPAP device to arrive here before she is discharged to go to a SNF (3) Paralysis of diaphragm Assessment/Plan: Since 01/17, the patient is short of breath and very orthpneic, she was intermittently tachypneic. 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 She had been on BiPAP which helped her symptoms. She turned in her BiPAP machine after using it about 1 year. 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 She never had pacing of the diaphragm done. She knows to sleep on her right side and not supine. A CXR was done today, it showed no infiltrate or edema Plan: She was advised to resume sleeping in a lateral position like she usually does at home Will order overnight continuous oximetry, in case she needs restart of CPAP while she is here, and for after DCh to a SNF. (4) Lacunar infarct, acute Assessment/Plan: In the ER, patient was not felt to be a tPA candidate because of mild neurodeficit, and she had no large vessel occlusions to be transferred for vascular intervention. The patient does not have a history of hypertension but was running systolic BP of 170 after admission for 2 days. Today BP improved to 140/80 on its own. After admission we learned she was already on baby aspirin daily Telem has not shown Afib Her carotid Dopplers came back indeterminate because she could not lie flat due to SOB Her fasting LDL came back 77 Her Echo with bubble study showed normal LVEF, and no embolus or intracardiac shunt PT and OT evaluations recommend she has rehab at a SNF and she is agreeable. She was choiced Plan: Cont neurochecks q4h Cont PT and OT and awaiting Speech Therapy documentation Continue with daily baby aspirin lifelong, and Plavix may need to be lifelong, since her stroke happened on aspirin Cont Lipitor 40 mg qpm Will re-order carotid Dopplers when she can lie flat Remain on telemetry I updated the pt and her 2 children at bedside (5) PSVT Assessment/Plan: Overnight the patient had an 18-beat run of SVT, the rate was approximately 140. This was approximately the time that the patient was desaturating (see #2). I suspect that the atrial dysrhythmia occurred because of the hypoxia Plan: EKG was done today and I interpretted it. EKG showed NSR, and is within normal limits. Remain on telemetry, watching for A-fib (6) UTI due to Klebsiella species Assessment/Plan: Patient had urinary frequency and her UA was abnormal, consistent with an acute UTI. All labs were reviewed. Bld cx are neg to date. Urine cx is growing KLebsiella pneumoniae, resistant only to Ampic Plan: I stopped the IV ceftriaxone and start ed her on daily Levaquin today plus a probiotic Await final blood culture results Qualifiers: Urinary tract infection type: acute cystitis Hematuria presence: without hematuria Qualified Code(s): N30.00 - Acute cystitis without hematuria (7) GERD (gastroesophageal reflux disease) Conclusion/Plan: Continuing Omeprazole since the recommendations say OK to use with Plavix - Current Meds Current Meds: Current Medications Generic Name Dose Route Start Last Admin Trade Name Freq PRN Reason Stop Dose Admin Acetaminophen 650 mg 01/16/23 17:23 01/19/23 06:28 Acetaminophen 325 Mg Tablet PO 650 mg Q4HR PRN Administration Pain 1 to 4, or Fever Aspirin 81 mg 01/17/23 09:00 01/19/23 08:57 Aspirin Ec 81 Mg Tablet PO 81 mg DAILY IFEANYI Administration Atorvastatin Calcium 40 mg 01/17/23 21:00 01/18/23 19:53 Atorvastatin 40 Mg Tablet PO 40 mg QPM IFEANYI Administration Clopidogrel Bisulfate 75 mg 01/17/23 09:00 01/19/23 08:57 Clopidogrel 75 Mg Tablet PO 75 mg DAILY IFEANYI Administration Levofloxacin 750 mg 01/19/23 09:00 01/19/23 08:57 Levofloxacin 250 Mg Tablet PO 750 mg DAILY IFEANYI Administration Ondansetron HCl 4 mg 01/16/23 17:23 01/19/23 10:41 Ondansetron 4 Mg/2 Ml Vial IVP 4 mg Q6HR PRN Administration Nausea / Vomiting Pantoprazole Sodium 40 mg 01/17/23 07:00 01/19/23 06:28 Pantoprazole 40 Mg Tablet PO 40 mg QDAC IFEANYI Administration Saccharomyces Boulardii 250 mg 01/19/23 08:00 01/19/23 08:57 Saccharomyces Boulardii 250 Mg Capsule PO 250 mg BIDWM IFEANYI Administration Sodium Chloride 10 ml 01/17/23 01:00 01/19/23 08:57 Sodium Chloride Flush 0.9% 10 Ml Syringe IVP 10 ml 0100,0900,1700 IFEANYI Administration - Lab Result Fish Bone Diagrams: 01/17/23 05:30 01/18/23 05:14 - EKG Results EKG Interpreted Independently: Yes EKG Comparison: Unchanged from prior EKG EKG Findings: Normal sinus rhythm, rate 71, WNL. - Additional Planning My Orders: My Active Orders 01/18/23 18:17 Continuous Pulse Oximetry [RC] CONT 01/19/23 06:59 O2 [Oxygen Therapy] [RC] .PRN 01/19/23 08:00 Saccharomyces Boulardii [Florastor] 250 mg PO BIDWM 01/19/23 08:58 Miscellaenous Nursing Order [RC] QSHIFT 01/19/23 08:59 Out of bed 3+ hours today [RC] TID 01/19/23 09:00 levoFLOXacin [Levaquin] 750 mg PO DAILY 01/19/23 09:03 Miscellaenous Nursing Order [RC] ONCE 01/19/23 11:44 CPAP [BIPAP/CPAP - RT] [RC] Q2H Subjective - Subjective Patient Reports: Other (No change: L side weak, has orthopnea when supine) Objective Vital Signs: Vital Signs - 24 hr 01/18/23 01/18/23 01/18/23 13:00 16:50 19:01 Temperature 36.3 C L 36.4 C L Heart Rate [ 90 85 Brachial] Heart Rate [ Monitoring electrodes] Respiratory 18 12 Rate Blood Pressure [Left Brachial artery] Blood Pressure 137/86 H 145/91 H [Right Brachial artery] O2 Saturation 95 97 94 If not protocol : Oxygen Flow, liters/minute 01/18/23 01/18/23 01/19/23 19:41 23:55 05:14 Temperature 36.5 C 36.7 C 36.5 C Heart Rate [ 71 Brachial] Heart Rate [ 80 75 Monitoring electrodes] Respiratory 22 16 18 Rate Blood Pressure 150/75 H 152/78 H 149/79 H [Left Brachial artery] Blood Pressure [Right Brachial artery] O2 Saturation 95 89 L 97 If not protocol 0.5 : Oxygen Flow, liters/minute 01/19/23 01/19/23 01/19/23 06:43 06:48 07:00 Temperature Heart Rate [ Brachial] Heart Rate [ 70 Monitoring electrodes] Respiratory 24 20 Rate Blood Pressure [Left Brachial artery] Blood Pressure [Right Brachial artery] O2 Saturation 79 L 97 If not protocol 1 3 3 : Oxygen Flow, liters/minute 01/19/23 01/19/23 08:21 10:45 Temperature 36.7 C 36.4 C L Heart Rate [ 74 85 Brachial] Heart Rate [ Monitoring electrodes] Respiratory 20 20 Rate Blood Pressure [Left Brachial artery] Blood Pressure 166/79 H 146/87 H [Right Brachial artery] O2 Saturation 99 98 If not protocol 3 1.5 : Oxygen Flow, liters/minute Oxygen O2 Source Nasal cannula I&O (Last 24 Hrs): Intake and Output Totals x24h 01/17/23 01/18/23 01/19/23 23:59 23:59 23:59 Intake Total 2184 2200 320 Output Total 1650 1000 Balance 534 1200 320 General: Alert, Oriented x3, Other (Disheveled) HEENT: Mucous membr. moist/pink Neck: Supple, No JVD Neuro: Other (L leg 1/5 strength, L arm clumsy) Cardiovascular: Regular rate Respiratory: No respiratory distress Abdomen: Soft, Other (Obese) Extremities: No clubbing, No edema, No tenderness/swelling - Results Results: Laboratory Results WBC 7.0 x10^3/uL (4.8-10.8) 01/17/23 05:30 RBC 4.71 10^6/uL (4.20-5.40) 01/17/23 05:30 Hgb 13.8 g/dL (12.0-16.0) 01/17/23 05:30 Hct 42.4 % (37.0-47.0) 01/17/23 05:30 MCV 90.0 fL (81.0-99.0) 01/17/23 05:30 MCH 29.3 pg (27.0-31.0) 01/17/23 05:30 MCHC 32.5 g/dL (32.0-36.0) 01/17/23 05:30 RDW 12.2 % (12.0-15.0) 01/17/23 05:30 Plt Count 248 10^3/uL (130-450) 01/17/23 05:30 MPV 10.0 fL (7.9-10.8) 01/17/23 05:30 Neut # (Auto) 5.2 10^3/uL (1.5-6.6) 01/17/23 05:30 Lymph # (Auto) 1.0 10^3/uL (1.5-3.5) L 01/17/23 05:30 [place] # (Auto) 0.6 10^3/uL (0.0-1.0) 01/17/23 05:30 Eos # (Auto) 0.2 10^3/uL (0.0-0.7) 01/17/23 05:30 Baso # (Auto) 0.1 10^3/uL (0.0-0.1) 01/17/23 05:30 Absolute Nucleated RBC 0.00 x10^3/uL 01/17/23 05:30 Nucleated RBC % 0.0 /100WBC 01/17/23 05:30 Sodium 141 mmol/L (135-145) 01/18/23 05:14 Potassium 3.6 mmol/L (3.5-4.5) 01/18/23 05:14 Chloride 109 mmol/L (101-111) 01/18/23 05:14 Carbon Dioxide 25 mmol/L (21-32) 01/18/23 05:14 Anion Gap 7.0 (6-13) 01/18/23 05:14 BUN 10 mg/dL (6-20) 01/18/23 05:14 Creatinine 0.6 mg/dL (0.6-1.3) 01/18/23 05:14 Estimated GFR (MDRD) 95 (>89) 01/18/23 05:14 Glucose 105 mg/dL (74-104) H 01/18/23 05:14 Calcium 8.9 mg/dL (8.5-10.3) 01/18/23 05:14 Phosphorus 3.3 mg/dL (2.5-5.0) 01/16/23 17:45 Magnesium 1.6 mg/dL (1.7-2.3) L 01/17/23 05:30 Total Bilirubin 1.0 mg/dL (0.2-1.0) 01/17/23 05:30 AST 12 IU/L (10-42) 01/17/23 05:30 ALT 7 IU/L (10-60) L 01/17/23 05:30 Alkaline Phosphatase 57 IU/L (42-121) 01/17/23 05:30 Total Protein 6.4 g/dL (6.4-8.9) 01/17/23 05:30 Albumin 4.0 g/dL (3.2-5.5) 01/17/23 05:30 Globulin 2.4 g/dL (2.1-4.2) 01/17/23 05:30 Albumin/Globulin Ratio 1.7 (1.0-2.2) 01/17/23 05:30 Triglycerides 97 mg/dL (48-352) 01/17/23 05:30 Cholesterol 151 mg/dL (-200) 01/17/23 05:30 LDL Cholesterol, Calc 77 mg/dL (-129) 01/17/23 05:30 VLDL Cholesterol 19 mg/dL 01/17/23 05:30 HDL Cholesterol 55 mg/dL (60-) L 01/17/23 05:30 LDL/HDL Ratio 1.4 (<4.4) 01/17/23 05:30 Cholesterol/HDL Ratio 2.7 (<4.4) 01/17/23 05:30 Lipase 19 U/L (11-82) 01/16/23 11:19 Urine Color YELLOW 01/16/23 12:25 Urine Clarity CLEAR (CLEAR) 01/16/23 12:25 Urine pH 7.0 PH (5.0-7.5) 01/16/23 12:25 Ur Specific [place] <=1.005 (1.002-1.030) 01/16/23 12:25 Urine Protein NEGATIVE mg/dL (NEGATIVE) 01/16/23 12:25 Urine Glucose (UA) NEGATIVE mg/dL (NEGATIVE) 01/16/23 12:25 Urine Ketones NEGATIVE mg/dL (NEGATIVE) 01/16/23 12:25 Urine Occult Blood NEGATIVE (NEGATIVE) 01/16/23 12:25 Urine Nitrite NEGATIVE (NEGATIVE) 01/16/23 12:25 Urine Bilirubin NEGATIVE (NEGATIVE) 01/16/23 12:25 Urine Urobilinogen 4 E.U./dL (NORMAL) H 01/16/23 12:25 Ur Leukocyte Esterase TRACE (NEGATIVE) H 01/16/23 12:25 Urine RBC None Seen /HPF (0-5) 01/16/23 12:25 Urine WBC 11-25 /HPF (0-5) H 01/16/23 12:25 Urine WBC Clumps PRESENT 01/16/23 12:25 Ur Squamous Epith Cells FEW Squamous (<= Few) 01/16/23 12:25 Urine Bacteria Moderate /HPF (None Seen) H 01/16/23 12:25 Ur Microscopic Review INDICATED 01/16/23 12:25 Urine Culture Comments INDICATED 01/16/23 12:25 Nasal Adenovirus (PCR) NOT DETECTED 01/16/23 13:40 Nasal B. parapertussis DNA (PCR) NOT DETECTED 01/16/23 13:40 Nasal Coronavir 229E PCR NOT DETECTED 01/16/23 13:40 Nasal Coronavir HKU1 PCR NOT DETECTED 01/16/23 13:40 Nasal Coronavir NL63 PCR NOT DETECTED 01/16/23 13:40 Nasal Coronavir OC43 PCR NOT DETECTED 01/16/23 13:40 Nasal Enterovir/Rhinovir PCR NOT DETECTED 01/16/23 13:40 Nasal Influenza B PCR NOT DETECTED 01/16/23 13:40 Nasal Influenza A PCR NOT DETECTED 01/16/23 13:40 Nasal Parainfluen 1 PCR NOT DETECTED 01/16/23 13:40 Nasal Parainfluen 2 PCR NOT DETECTED 01/16/23 13:40 Nasal Parainfluen 3 PCR NOT DETECTED 01/16/23 13:40 Nasal Parainfluen 4 PCR NOT DETECTED 01/16/23 13:40 Nasal RSV (PCR) NOT DETECTED 01/16/23 13:40 Nasal B.pertussis DNA PCR NOT DETECTED 01/16/23 13:40 Nasal C.pneumoniae (PCR) NOT DETECTED 01/16/23 13:40 Timothy Human Metapneumo PCR NOT DETECTED 01/16/23 13:40 Nasal M.pneumoniae (PCR) NOT DETECTED 01/16/23 13:40 Nasal SARS-CoV-2 (PCR) NOT DETECTED 01/16/23 13:40
[2023-01-19] MEDS: ATORVASTATIN 40 MG TABLET PO SCH (20:16)
[2023-01-20] MEDS: PANTOPRAZOLE 40 MG TABLET PO SCH (05:47)
[2023-01-20] MEDS: SODIUM CHLORIDE FLUSH 0.9% 10 ML SYRINGE IVP SCH ×3 (05:48→16:30)
[2023-01-20] MEDS: ONDANSETRON 4 MG/2 ML VIAL IVP PRN ×2 (05:52→17:42)
[2023-01-20] MEDS: CLOPIDOGREL 75 MG TABLET PO SCH (08:42)
[2023-01-20] MEDS: ASPIRIN EC 81 MG TABLET PO SCH (08:42)
[2023-01-20] MEDS: levoFLOXacin 250 MG TABLET PO SCH (08:42)
[2023-01-20] MEDS: SACCHAROMYCES BOULARDII 250 MG CAPSULE PO SCH ×2 (08:42→16:27)
--- NOTE | 2023-01-20 08:49 | PROVIDER PROGRESS NOTE ---
Assessment/Plan - Problem List (1) Acute respiratory failure with hypoxia Assessment/Plan: The patient feels better when she lays on her right lateral decubitus position, for years. She de-saturated overnight and was ordered to get the hospital CPAP machine overnight, which she did not tolerate, and she needed 3 L O2 supplemental Her Echo showed normal LVEF. Her IV fluids were stopped in case of overload. A CXR was done yesterday, it showed no infiltrate or edema The cause of her hypoxia is twofold: she has sleep apnea plus a paralyzed diaphragm Plan: Cont nocturnal suppl O2 OOB to chair ordered so she can be upright during the day (2) Sleep apnea Assessment/Plan: Patient has a known diagnosis of sleep apnea. She used to have a CPAP machine but turned it in several years ago for unclear reason. I ordered overnight oximetry which was done 2 nights ago and she desaturated to 85%. Her lowest pleth saturation was about 79% on room air I ordered her to get the hospital CPAP machine overnight this last night, which she did not tolerate, and she needed 3 L O2 supplemental Plan: Cont nocturnal suppl O2 (3) Paralysis of diaphragm Assessment/Plan: The patient is very orthpneic, she was intermittently tachypneic. 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 She had been on BiPAP which helped her symptoms. She turned in her BiPAP machine after using it about 1 year. 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 She never had pacing of the diaphragm done. She knows to sleep on her right side and not supine. Plan: She was advised to resume sleeping in a lateral position like she usually does at home Cont nocturnal suppl O2 after discharge to SNF and to home, and daytime O2 if she still desats I informed her daughter today at bedside that she needs to resume seeing a Pulm onologist (4) Lacunar infarct, acute Assessment/Plan: In the ER, patient was not felt to be a tPA candidate because of mild neurodeficit, and she had no large vessel occlusions to be transferred for vascular intervention. After admission we learned she was already on baby aspirin daily Telem has not shown Afib Her carotid Dopplers came back indeterminate because she could not lie flat due to SOB Her fasting LDL came back 77 Her Echo with bubble study showed normal LVEF, and no embolus or intracardiac shunt PT and OT evaluations recommend she has rehab at a SNF and she is agreeable. She was choiced and 2 children yesterday picked [facility]. Today the (other) daughter asked that we also check [facility] Plan: Will now stop neurochecks q4h Plan for SNF for PT, OT and Speech Therapy Continue with daily baby aspirin lifelong, and Plavix may need to be lifelong, since her stroke happened on aspirin Cont Lipitor 40 mg qpm Will re-order carotid Dopplers when she can lie flat Remain on telemetry I updated the pt and her (other) daughter today at bedside (5) PSVT Assessment/Plan: At night on 01/18 the patient had an 18-beat run of SVT, the rate was approximately 140. This was approximately the time that the patient was desaturating. I suspect that the atrial dysrhythmia occurred because of the hypoxia Plan: Remain on telemetry, watching for A-fib (6) UTI due to Klebsiella species Assessment/Plan: Patient had urinary frequency and her UA was abnormal, consistent with an acute UTI. All labs were reviewed. Bld cx are neg to date. Urine cx is growing KLebsiella pneumoniae, resistant only to Ampic She vomited after the probiotic and has refused it Plan: I stopped the IV ceftriaxone and start ed her on daily Levaquin plus a probiotic. Will plan a total course of 7 days of antibx Await final blood culture results Qualifiers: Urinary tract infection type: acute cystitis Hematuria presence: without hematuria Qualified Code(s): N30.00 - Acute cystitis without hematuria (7) GERD (gastroesophageal reflux disease) Conclusion/Plan: Continuing Omeprazole since the recommendations say OK to use with Plavix - Current Meds Current Meds: Current Medications Generic Name Dose Route Start Last Admin Trade Name Freq PRN Reason Stop Dose Admin Acetaminophen 650 mg 01/16/23 17:23 01/19/23 18:58 Acetaminophen 325 Mg Tablet PO 650 mg Q4HR PRN Administration Pain 1 to 4, or Fever Aspirin 81 mg 01/17/23 09:00 01/19/23 08:57 Aspirin Ec 81 Mg Tablet PO 81 mg DAILY IFEANYI Administration Atorvastatin Calcium 40 mg 01/17/23 21:00 01/19/23 20:16 Atorvastatin 40 Mg Tablet PO 40 mg QPM IFEANYI Administration Clopidogrel Bisulfate 75 mg 01/17/23 09:00 01/19/23 08:57 Clopidogrel 75 Mg Tablet PO 75 mg DAILY IFEANYI Administration Levofloxacin 750 mg 01/19/23 09:00 01/19/23 08:57 Levofloxacin 250 Mg Tablet PO 750 mg DAILY IFEANYI Administration Ondansetron HCl 4 mg 01/16/23 17:23 01/20/23 05:52 Ondansetron 4 Mg/2 Ml Vial IVP 4 mg Q6HR PRN Administration Nausea / Vomiting Pantoprazole Sodium 40 mg 01/17/23 07:00 01/20/23 05:47 Pantoprazole 40 Mg Tablet PO 40 mg QDAC IFEANYI Administration Saccharomyces Boulardii 250 mg 01/19/23 08:00 01/19/23 16:34 Saccharomyces Boulardii 250 Mg Capsule PO 250 mg BIDWM IFEANYI Administration Sodium Chloride 10 ml 01/17/23 01:00 01/20/23 05:48 Sodium Chloride Flush 0.9% 10 Ml Syringe IVP 10 ml 0100,0900,1700 IFEANYI Administration - Lab Result Fish Bone Diagrams: 01/17/23 05:30 01/18/23 05:14 - Additional Planning My Orders: My Active Orders 01/19/23 08:58 Miscellaenous Nursing Order [RC] QSHIFT 01/19/23 08:59 Out of bed 3+ hours today [RC] TID 01/19/23 09:00 levoFLOXacin [Levaquin] 750 mg PO DAILY 01/19/23 09:03 Miscellaenous Nursing Order [RC] ONCE 01/19/23 11:44 CPAP [BIPAP/CPAP - RT] [RC] .PRN 01/19/23 15:17 Miscellaenous Nursing Order [RC] ONCE 01/19/23 15:19 Shower [RC] PRN Subjective - Subjective Patient Reports: Other (L leg has some strength returning) Objective Vital Signs: Vital Signs - 24 hr 01/19/23 01/19/23 01/19/23 10:45 13:31 16:53 Temperature 36.4 C L 36.8 C Heart Rate Heart Rate [ 85 86 Brachial] Heart Rate [ Monitoring electrodes] Respiratory 20 24 Rate Blood Pressure [Left Brachial artery] Blood Pressure 146/87 H 150/87 H [Right Brachial artery] O2 Saturation 98 95 93 If not protocol 1.5 : Oxygen Flow, liters/minute 01/19/23 01/19/23 01/19/23 18:47 19:40 20:06 Temperature 36.4 C L Heart Rate 87 Heart Rate [ 87 Brachial] Heart Rate [ Monitoring electrodes] Respiratory 20 Rate Blood Pressure 151/71 H [Left Brachial artery] Blood Pressure [Right Brachial artery] O2 Saturation 91 L 97 If not protocol : Oxygen Flow, liters/minute 01/19/23 01/19/23 01/20/23 20:12 23:29 00:50 Temperature 36.7 C Heart Rate Heart Rate [ 83 Brachial] Heart Rate [ Monitoring electrodes] Respiratory 18 17 Rate Blood Pressure 173/75 H [Left Brachial artery] Blood Pressure [Right Brachial artery] O2 Saturation 94 95 93 If not protocol 3 : Oxygen Flow, liters/minute 01/20/23 01/20/23 01/20/23 00:55 05:20 07:57 Temperature 36.5 C 36.9 C Heart Rate Heart Rate [ Brachial] Heart Rate [ 76 75 Monitoring electrodes] Respiratory 20 18 Rate Blood Pressure [Left Brachial artery] Blood Pressure 150/113 H 148/75 H [Right Brachial artery] O2 Saturation 95 92 If not protocol 3 3 : Oxygen Flow, liters/minute Oxygen O2 Source Room air I&O (Last 24 Hrs): Intake and Output Totals x24h 01/18/23 01/19/23 01/20/23 23:59 23:59 22:59 Intake Total 2200 780 360 Output Total 1000 150 150 Balance 1200 630 210 General: Alert, Oriented x3 HEENT: Mucous membr. moist/pink, Other (Disheveled) Neck: Supple, No JVD Neuro: Alert, Other (L leg 2/5, able to wiggle toes L foot, L arm less clumsy, speech less delayed) Cardiovascular: Regular rate Respiratory: No respiratory distress Abdomen: Soft, No tenderness, Other (Obese) Extremities: No clubbing, No edema, No tenderness/swelling - Results Results: Laboratory Results WBC 7.0 x10^3/uL (4.8-10.8) 01/17/23 05:30 RBC 4.71 10^6/uL (4.20-5.40) 01/17/23 05:30 Hgb 13.8 g/dL (12.0-16.0) 01/17/23 05:30 Hct 42.4 % (37.0-47.0) 01/17/23 05:30 MCV 90.0 fL (81.0-99.0) 01/17/23 05:30 MCH 29.3 pg (27.0-31.0) 01/17/23 05:30 MCHC 32.5 g/dL (32.0-36.0) 01/17/23 05:30 RDW 12.2 % (12.0-15.0) 01/17/23 05:30 Plt Count 248 10^3/uL (130-450) 01/17/23 05:30 MPV 10.0 fL (7.9-10.8) 01/17/23 05:30 Neut # (Auto) 5.2 10^3/uL (1.5-6.6) 01/17/23 05:30 Lymph # (Auto) 1.0 10^3/uL (1.5-3.5) L 01/17/23 05:30 [place] # (Auto) 0.6 10^3/uL (0.0-1.0) 01/17/23 05:30 Eos # (Auto) 0.2 10^3/uL (0.0-0.7) 01/17/23 05:30 Baso # (Auto) 0.1 10^3/uL (0.0-0.1) 01/17/23 05:30 Absolute Nucleated RBC 0.00 x10^3/uL 01/17/23 05:30 Nucleated RBC % 0.0 /100WBC 01/17/23 05:30 Sodium 141 mmol/L (135-145) 01/18/23 05:14 Potassium 3.6 mmol/L (3.5-4.5) 01/18/23 05:14 Chloride 109 mmol/L (101-111) 01/18/23 05:14 Carbon Dioxide 25 mmol/L (21-32) 01/18/23 05:14 Anion Gap 7.0 (6-13) 01/18/23 05:14 BUN 10 mg/dL (6-20) 01/18/23 05:14 Creatinine 0.6 mg/dL (0.6-1.3) 01/18/23 05:14 Estimated GFR (MDRD) 95 (>89) 01/18/23 05:14 Glucose 105 mg/dL (74-104) H 01/18/23 05:14 Calcium 8.9 mg/dL (8.5-10.3) 01/18/23 05:14 Phosphorus 3.3 mg/dL (2.5-5.0) 01/16/23 17:45 Magnesium 1.6 mg/dL (1.7-2.3) L 01/17/23 05:30 Total Bilirubin 1.0 mg/dL (0.2-1.0) 01/17/23 05:30 AST 12 IU/L (10-42) 01/17/23 05:30 ALT 7 IU/L (10-60) L 01/17/23 05:30 Alkaline Phosphatase 57 IU/L (42-121) 01/17/23 05:30 Total Protein 6.4 g/dL (6.4-8.9) 01/17/23 05:30 Albumin 4.0 g/dL (3.2-5.5) 01/17/23 05:30 Globulin 2.4 g/dL (2.1-4.2) 01/17/23 05:30 Albumin/Globulin Ratio 1.7 (1.0-2.2) 01/17/23 05:30 Triglycerides 97 mg/dL (48-352) 01/17/23 05:30 Cholesterol 151 mg/dL (-200) 01/17/23 05:30 LDL Cholesterol, Calc 77 mg/dL (-129) 01/17/23 05:30 VLDL Cholesterol 19 mg/dL 01/17/23 05:30 HDL Cholesterol 55 mg/dL (60-) L 01/17/23 05:30 LDL/HDL Ratio 1.4 (<4.4) 01/17/23 05:30 Cholesterol/HDL Ratio 2.7 (<4.4) 01/17/23 05:30 Lipase 19 U/L (11-82) 01/16/23 11:19 Urine Color YELLOW 01/16/23 12:25 Urine Clarity CLEAR (CLEAR) 01/16/23 12:25 Urine pH 7.0 PH (5.0-7.5) 01/16/23 12:25 Ur Specific [place] <=1.005 (1.002-1.030) 01/16/23 12:25 Urine Protein NEGATIVE mg/dL (NEGATIVE) 01/16/23 12:25 Urine Glucose (UA) NEGATIVE mg/dL (NEGATIVE) 01/16/23 12:25 Urine Ketones NEGATIVE mg/dL (NEGATIVE) 01/16/23 12:25 Urine Occult Blood NEGATIVE (NEGATIVE) 01/16/23 12:25 Urine Nitrite NEGATIVE (NEGATIVE) 01/16/23 12:25 Urine Bilirubin NEGATIVE (NEGATIVE) 01/16/23 12:25 Urine Urobilinogen 4 E.U./dL (NORMAL) H 01/16/23 12:25 Ur Leukocyte Esterase TRACE (NEGATIVE) H 01/16/23 12:25 Urine RBC None Seen /HPF (0-5) 01/16/23 12:25 Urine WBC 11-25 /HPF (0-5) H 01/16/23 12:25 Urine WBC Clumps PRESENT 01/16/23 12:25 Ur Squamous Epith Cells FEW Squamous (<= Few) 01/16/23 12:25 Urine Bacteria Moderate /HPF (None Seen) H 01/16/23 12:25 Ur Microscopic Review INDICATED 01/16/23 12:25 Urine Culture Comments INDICATED 01/16/23 12:25 Nasal Adenovirus (PCR) NOT DETECTED 01/16/23 13:40 Nasal B. parapertussis DNA (PCR) NOT DETECTED 01/16/23 13:40 Nasal Coronavir 229E PCR NOT DETECTED 01/16/23 13:40 Nasal Coronavir HKU1 PCR NOT DETECTED 01/16/23 13:40 Nasal Coronavir NL63 PCR NOT DETECTED 01/16/23 13:40 Nasal Coronavir OC43 PCR NOT DETECTED 01/16/23 13:40 Nasal Enterovir/Rhinovir PCR NOT DETECTED 01/16/23 13:40 Nasal Influenza B PCR NOT DETECTED 01/16/23 13:40 Nasal Influenza A PCR NOT DETECTED 01/16/23 13:40 Nasal Parainfluen 1 PCR NOT DETECTED 01/16/23 13:40 Nasal Parainfluen 2 PCR NOT DETECTED 01/16/23 13:40 Nasal Parainfluen 3 PCR NOT DETECTED 01/16/23 13:40 Nasal Parainfluen 4 PCR NOT DETECTED 01/16/23 13:40 Nasal RSV (PCR) NOT DETECTED 01/16/23 13:40 Nasal B.pertussis DNA PCR NOT DETECTED 01/16/23 13:40 Nasal C.pneumoniae (PCR) NOT DETECTED 01/16/23 13:40 Timothy Human Metapneumo PCR NOT DETECTED 01/16/23 13:40 Nasal M.pneumoniae (PCR) NOT DETECTED 01/16/23 13:40 Nasal SARS-CoV-2 (PCR) NOT DETECTED 01/16/23 13:40
[2023-01-20] MEDS: ACETAMINOPHEN 325 MG TABLET PO PRN (17:42)
[2023-01-20] MEDS: ATORVASTATIN 40 MG TABLET PO SCH (19:39)
[2023-01-21] MEDS: SODIUM CHLORIDE FLUSH 0.9% 10 ML SYRINGE IVP SCH ×2 (02:02→09:06)
[2023-01-21] MEDS: PANTOPRAZOLE 40 MG TABLET PO SCH (07:02)
[2023-01-21] MEDS: SACCHAROMYCES BOULARDII 250 MG CAPSULE PO SCH (09:05)
[2023-01-21] MEDS: levoFLOXacin 250 MG TABLET PO SCH (09:06)
[2023-01-21] MEDS: ASPIRIN EC 81 MG TABLET PO SCH (09:06)
[2023-01-21] MEDS: CLOPIDOGREL 75 MG TABLET PO SCH (09:06)
[2023-01-21] MEDS: ACETAMINOPHEN 325 MG TABLET PO PRN (09:08)
[2023-01-21] MEDS ORDERED: LIDOCAINE PATCH 5% TOP SCH (10:31)
[2023-01-21] MEDS ORDERED: DICLOFENAC SODIUM 1% GEL 50 GM TUBE TOP PRN (10:31)
[2023-01-21] MEDS: ONDANSETRON 4 MG/2 ML VIAL IVP PRN (10:43)
[2023-01-21 11:14] VITALS: BP 133/84; O2SAT 97
--- NOTE | 2023-01-21 13:12 | Discharge Plan ---
"Discharge Plan for SNF / JOSE G - Discharge Plan And Transition Orders Problem Reviewed?: Yes Disposition: 03 SNF DC/Xfer Condition: Fair Allergies and Adverse Reactions: Allergies Allergy/AdvReac Type Severity Reaction Status Date / Time Penicillins Allergy Rash Verified 01/16/23 11:19 Health Concerns: The patient was hospitalized for evaluation and management of an acute stroke. She is left with left-sided weakness. She needs further PT, OT and speech therapy at a SNF. Plan of Treatment: The stroke happened while the patient was taking daily aspirin. She is now on aspirin and Plavix. Her discharge was delayed due to hypoxia and we learned she has a history of diaphragmatic paralysis and sleep apnea. She needs new supplemental O2, and does not tolerate a (hospital) CPAP machine. Care Goals: Improvement in symptoms and stabilization are the goals. Assessment: The patient understands and is agreeable with the plan. - SNF / JOSE G Transition Orders Admit to (Facility): [facility] in [place] Under the care of (Name): LEEROY Lopez Discharge Diagnosis: (1) Lacunar infarct, acute She was already taking aspirin when the stroke occurred. She is now on ASA and Plavix. She did not tolerate laying down for carotid Doppler eval. She has significant L sided weakness and needs PT and OT and Speech Therapy. (2) PSVT Resolved. No Afib was seen on telemetry. Her Echo showed normal LV and RV function, no clot or shunt. (3) UTI due to Klebsiella species Improving. Needs 1 more day of oral Levaquin. (4) Acute respiratory failure with hypoxia She now needs suppl O2 24/7. She needs an oximetry walk test on the day of discharge to determine what [facility] home O2 settings should be, and she needs a new home O2 order placed. (5) Paralysis of diaphragm Diaphragmatic paralysis diagnosed in 2008. She had been on BiPAP which helped her symptoms. She turned in her BiPAP machine after using it about 1 year. She used to have a [employer] in [place]. She never had pacing of the diaphragm done. She knows to sleep on her right side and not supine. She did not tolerate trying the hospital CPAP device, so she is on suppl O2 without a device. (6) Sleep apnea Cont suppl O2, she did not tolerate trying the hospital CPAP device (7) GERD (gastroesophageal reflux disease) Stable Medicare Certification Statement: I certify that Post Hospital senior care care is medically necessary on a continuing basis for any of the conditions for which she/he is receiving care during hospitalization. Notify PCP of admission and forward orders to primary provider for signature. Weight on admission and: Weekly Call PCP immediately if weight increases by: 5 kg Other Notification Orders: Call PCP immediately if patient develops dyspnea, chest pain/tightness or edema. House Bowel Program: Yes Additional Bowel Program Orders: If no BM after 2 days, nurse may give M.O.M. 30ml PO PRN and/or ducolax Supp [address] and/or PEGGY 250mg P.O., and/or senna 1-2 tabs PO. On day 3 nurse may give repeat above order until residents constipation is resolved. Annual Influenza Vaccine (between Nov 16 and June 15): Yes Two-step PPD per [facility] [phone] or approved exception documents: Yes Treatments & Other Orders: Daily PT, OT and Speech Therapy. Oxygen Orders: 1L/min via n.c. at rest. Medication Orders: PLEASE REFER TO THE DISCHARGE MEDICATION LIST. Insulin Orders?: No - Medications New Prescriptions: Aspirin EC [Ecotrin] 81 mg PO DAILY #30 tab levoFLOXacin [Levaquin] 750 mg PO DAILY #1 tab Lidocaine Patch 5% [Lidoderm Patch] 1 patch TOP DAILY #30 patch Atorvastatin [Lipitor] 40 mg PO QPM #30 tab Clopidogrel [Plavix] 75 mg PO DAILY #30 tab Diclofenac Sodium 1% Gel [Voltaren Gel] 1 applic TOP QID PRN #1 each PRN Reason: Mild Pain (Level 1-3) - Diet Type: Geriatric (Low cholesterol diet) Texture: Regular Liquids: Thin May have monthly special meal: Yes - Therapies | Activity Therapy: Evaluation | Treat if indicated: Speech, PT, OT Rehabilitation Potential: Maximize functional status Activity: Activity as Tolerated Weight Bearing: Full Weight Assistance Devices: Walker Follow Up: See PCP after discharge from SNF. Also needs to restart seeing Pulmnologist (? in [place])."
--- NOTE | 2023-01-21 13:33 | DISCHARGE SUMMARY ---
Discharge Summary Admit Date: 01/16/23 Discharge Date: 01/21/23 Discharging Provider: Halle Christensen MD Primary Care Provider: LEEROY Grier Code Status: Do Not Attempt Resuscitation Condition at Discharge: Fair Discharge Disposition: 03 SNF DC/Xfer - HPI History of Present Illness: This is an 82-year-old white female who lives alone at home, still drives a car. She only takes omeprazole for GERD. Yesterday while driving to get [employer] she said that "something was off." She then was up to the bathroom every hour over night to urinate. Then this morning when she awoke for the day she noticed that she had to lean on the wall to walk otherwise she had poor balance and she noticed that her speech was not normal. The symptoms began at 0730. She called the ambulance and was in the ER within 3 hours. The work-up in the ED for stroke included a CTA of the head and neck that showed no large vessel occlusions or bleed. An MRI was done that showed an acute lacunar infarct in the right basal ganglion with extension into the deep portions of the brain. The patient received 4 baby aspirin. Because her symptoms were of mild dysarthr ia and mild left arm and leg weakness, she was not felt to be a candidate for tPA and she had no large vessels occluded to be a candidate for transfer for intervention. The ED provider spoke to me about this patient. Her IVC eval showed that she was dehydrated and so she received saline boluses and was also started on IV ceftriaxone after her urinalysis showed evidence of a UTI. The patient will be admitted to the Hospitalist service to evaluate and treat a completed stroke and an acute UTI. I spoke to her about her CODE BLUE wishes and she wants to be a DNR. - HOSPITAL COURSE Hospital Course: (1) Lacunar infarct, acute She was already taking aspirin when the stroke occurred. She is now on ASA and Plavix. She did not tolerate laying down for carotid Doppler eval, so the carotid Doppler needs to be re-done. Her Echo showed normal LV and RV function, no clot or shunt. There was no Afib seen on telemetry. She had persistent significant L sided weakness and needed further PT and OT and Speech Therapy and was discharged to a SNF. (2) Hx of PSVT SVT was brief and resolved spontaneously. No Afib was seen on telemetry. Her Echo showed normal LV and RV function, no clot or shunt. (3) UTI due to Klebsiella species She was put on empiric Ceftriaxone. We awaited urine result and sens and she was changed to oral Levaquin and, at discharge, she needed 1 more day of oral Levaquin. She did not tolerate probiotic pill, which caused vomiting. (4) Acute respiratory failure with hypoxia She was not on home O2 before admission. Here she was desaturating and had marked orthopnea. Her CXR showed no abnormalities. She was hypoxic from diaphragm paralysis and sleep apnea. She now needs suppl O2 08/10. She will likely need a new home O2 order, after she is hopefully tested for O2 at the SNF. (5) Paralysis of diaphragm Diaphragmatic paralysis was diagnosed in 2008. She had been on BiPAP then, which helped her symptoms. She turned in her BiPAP machine after using it only 1 year. She used to have a [employer] in [place]. She never had pacing of the diaphragm done. It helps to sleep on her right side and not supine. She did not tolerate wearing the hospital CPAP device, so she is on suppl O2 without a device. (6) Sleep apnea Cont suppl O2. She did not tolerate wearing the hospital CPAP device, but she should be retested as an outpatient and offered a different sleep mask. (7) GERD (gastroesophageal reflux disease) Stable on meds. - ALLERGIES Allergies/Adverse Reactions: Allergies Allergy/AdvReac Type Severity Reaction Status Date / Time Penicillins Allergy Rash Verified 01/16/23 11:19 - MEDICATIONS Home Medications: Ambulatory Orders Medication Instructions Recorded Confirmed Omeprazole [PriLOSEC] 20 mg PO DAILY 08/14/14 08/14/14 Dorzolamide 2% Ophth Drops 1 drops EACHEYE DAILY 01/17/23 [Trusopt 2% Ophth Drops] Aspirin EC [Ecotrin] 81 mg PO DAILY #30 tab 01/21/23 Atorvastatin [Lipitor] 40 mg PO QPM #30 tab 01/21/23 Clopidogrel [Plavix] 75 mg PO DAILY #30 tab 01/21/23 Diclofenac Sodium 1% Gel [Voltaren 1 applic TOP QID PRN #1 each 01/21/23 Gel] Lidocaine Patch 5% [Lidoderm Patch] 1 patch TOP DAILY #30 patch 01/21/23 levoFLOXacin [Levaquin] 750 mg PO DAILY #1 tab 01/21/23 - PHYSICAL EXAM AT DISCHARGE General Appearance: positive: No acute distress, Alert Eyes Bilateral: positive: Normal inspection, EOMI ENT: positive: No signs of dehydration, Other (L cheek weak, smile is symmetric however.) Neck: positive: Nml inspection, No JVD Respiratory: positive: Breath sounds nml (she is wearing suppl O2 via n.c. ) Cardiovascular: positive: Regular rate & rhythm, No murmur Abdomen: positive: Non-tender, Nml bowel sounds, No distention, Other (Obese) Skin: positive: Warm, Dry Extremities: positive: Non-tender, No pedal edema Neurologic/Psychiatric: positive: Oriented x3, Other (L leg 1/5 strength, L arm 3/5 strength, slow speech) - LABS Result Diagrams: 01/17/23 05:30 01/18/23 05:14 - DIAGNOSTIC IMAGING Diagnostic Imaging Results: Final report reviewed - FOLLOW UP Follow Up: See PCP after discharge from SNF. She needs a sleep study and to establish with a [employer]. - TIME SPENT Time Spent in Discharge (Minutes): 45
== END 2023-01-21 14:00 | DRG 64 ==
LOC: EDUNIT# → ED 10:48 → MS2 17:24
PROVIDERS: ADMIT Internal Medicine; ATTEND Internal Medicine
DX: I63.81 Other cerebral infarction due to occlusion or stenosis of small artery (principal); J96.01 Acute respiratory failure with hypoxia; G81.94 Hemiplegia, unspecified affecting left nondominant side; N30.00 Acute cystitis without hematuria; Z11.52 Encounter for screening for COVID-19; R47.1 Dysarthria and anarthria; R29.705 NIHSS score 5; B96.1 Klebsiella pneumoniae [K. pneumoniae] as the cause of diseases classified elsewhere; J98.6 Disorders of diaphragm; G47.30 Sleep apnea, unspecified; K21.9 Gastro-esophageal reflux disease without esophagitis; R47.9 Unspecified speech disturbances; R26.9 Unspecified abnormalities of gait and mobility; Z66 Do not resuscitate; Z79.82 Long term (current) use of aspirin; Z86.79 Personal history of other diseases of the circulatory system
CPT/HCPCS: 36415; 70450; 70496; 70498; 70551; 71045; 80048; 80053; 80061; 81001; 83690; 83735; 84100; 85025; 87040; 87077; 87086; 87181; 87633; 92523; 92610; 93005; 93306; 93880; 94660; 97112; 97162; 97166; 97530; 99285; A9270; Q9967; 81003; 83721

== ENCOUNTER 2023-05-24 15:25 | Outpatient (CLI) | payer MEDICARE, OTHER ==
--- NOTE | 2023-05-25 20:30 | Ultrasound Report ---
PROCEDURE: Carotid Doppler Complete INDICATIONS: CVA TECHNIQUE: Color and pulse Doppler interrogation was performed of both carotid systems, with image documentation and velocity measurements. COMPARISON: Carotid Doppler on January 17, 2023. FINDINGS: Right side: Brachial blood pressure: 141 mm Hg. Common carotid artery peak systolic velocity: 47 cm/sec. Internal carotid artery peak systolic velocity: 57 cm/sec. Internal carotid artery end diastolic velocity: 15 cm/sec. External carotid artery peak systolic velocity: 62 cm/sec. ICA/CCA peak systolic ratio: 1.2 . Washington scale imaging description: No significant atherosclerotic plaque. Percent internal carotid artery stenosis: Normal. Vertebral artery: Flow direction is antegrade. Left side: Brachial blood pressure: 149 mm Hg. Common carotid artery peak systolic velocity: 57 cm/sec. Internal carotid artery peak systolic velocity: 76 cm/sec. Internal carotid artery end diastolic velocity: 27 cm/sec. External carotid artery peak systolic velocity: 37 cm/sec. ICA/CCA peak systolic ratio: 1.3 . [place] scale imaging description: No significant atherosclerotic plaque in the internal carotid artery . Small focal calcified plaque in the distal common carotid artery.. Percent internal carotid artery stenosis: Normal. Vertebral artery: Flow direction is antegrade. IMPRESSION: 1. In the right internal carotid artery, there is no hemodynamically significant stenosis based on pe ak systolic velocity criteria. 2. In the left internal carotid artery, there is no hemodynamically significant stenosis based on pea k systolic velocity criteria. 3. Antegrade blood flow within the right vertebral artery. 4. Antegrade blood flow within the left vertebral artery. The estimate of stenosis included in the report of the imaging study was calculated using the [facility]-end orsed standards of carotid artery stenosis. Reviewed by: Radhika Rucker MD on 05/25/2023 8:29 PM PST Approved by: Radhika Rucker MD on 05/25/2023 8:29 PM PST Station ID: [id number]
== END 2023-05-24 15:26 | disposition home or self-care (01) ==
LOC: DI 15:25
PROVIDERS: ATTEND Physician Assistant
DX: I63.9 Cerebral infarction, unspecified (principal)
CPT/HCPCS: 93880

== ENCOUNTER 2025-01-03 16:30 | Observation (INO) ==
[2025-01-03 17:46] LABS: HCT - HEMATOCRIT 41.4 % (37.0-47.0); HGB - HEMOGLOBIN 13.7 g/dL (12.0-16.0); MEAN PLATELET VOLUME 9.9 fL (7.9-10.8); NRBC ABSOLUTE COUNT (AUTO) 0.00 x10^3/uL; NUCLEATED RED BLOOD CELLS AUTO 0.0 /100WBC; PLT - PLATELET COUNT 177 10^3/uL (130-450); RED CELL DISTRIBUTION WIDTH 12.5 % (12.0-15.0)
[2025-01-03 18:02] LABS: ALT ALANINE AMINOTRANSFERASE 81.0 IU/L (10-60); AST ASPARTATE AMINOTRANSFERASE 132.0 IU/L (10-42); BUN - BLOOD UREA NITROGEN 18.0 mg/dL (6-20); CARBON DIOXIDE - CO2 27.0 mmol/L (21-32); CREATININE 0.7 mg/dL (0.6-1.3); GFR - MDRD 80.0 (>89)
--- NOTE | 2025-01-03 18:17 | CT Report ---
PROCEDURE: CT Head WO INDICATIONS: confusion, worsening TECHNIQUE: Helical axial CT of the brain was obtained without contrast and reformatted in multiple planes. COMPARISON: None FINDINGS: CSF spaces: Ventricles are appropriate in size and position. No hydrocephalus. Basal cisterns unremarkable. Brain: No midline shift. No intracranial masses or hemorrhage. [place]-white matter interface is normal. Old infarct in the right lentiform nucleus. Underlying atrophy and multifocal white matter chronic ischemic change Skull and face: Calvarium and skull base are unremarkable without suspicious lesion. Sinuses: Visualized sinuses and mastoids are clear. IMPRESSION: Atrophy and chronic ischemic change without acute hemorrhage or mass effect. Reviewed by: Sam Rossi MD on 01/03/2025 5:14 PM HARRIET Approved by: Sam Rossi MD on 01/03/2025 5:14 PM HARRIET Station ID: [id number]
[2025-01-03 18:45] LABS: OCCULT BLOOD,URINE MODERATE (NEGATIVE)
[2025-01-03 18:46] LABS: GLUCOSE, URINE (UA) NEGATIVE (NEGATIVE); KETONES,URINE (UA) NEGATIVE (NEGATIVE)
[2025-01-03] MEDS: ACETAMINOPHEN 500 MG TABLET PO STA (18:56)
[2025-01-03 18:58] LABS: CRYSTALS,URINE 6-10 Calcium Oxalate /LPF; SQUAMOUS EPITHELIAL CELL,UR FEW Squamous (<= Few)
--- NOTE | 2025-01-03 19:05 | ED Physician Documentation ---
History of Present Illness Stated complaint Stated Complaint: CONFUSION Chief complaint Chief Complaint: Neuro Additonal information Additional information: Patient is a 84-year-old female who presents to the ER with her daughter for concerns for worsening confusion over the last several days. At baseline patient has dementia, and daughter shares that she has had some chronic memory changes over the last several months. However notably was evaluated earlier this month, and treated for UTI with outpatient oral antibiotics. According to daughter, is unclear how many doses patient actually took of this outpatient antibiotic. Daughter notes a stepwise worsening progression in her confusion over the last few days. Patient and daughter deny any fever, chills. Patient denies any chest pain, shortness of breath. She denies any nausea, vomiting, flank pain. She denies any dysuria, hematuria, changes to urination or bowel movements apart from some persistent diarrhea. Denies bloody stools. Review of Systems Status of ROS: See HPI Meds/Allgy Home Medications Ambulatory Orders Medication Instructions Recorded Confirmed aspirin 81 mg tablet,delayed 81 mg PO DAILY #30 tabs 1 03/23/22 12/22/24 release cholecalciferol (vitamin D3) 25 25 mcg PO QDAY 5 12/22/24 mcg (1,000 unit) capsule dorzolamide 2 % eye drops 1 drp ophthalmic (eye) QDAY 08/25/24 12/22/24 multivitamin (Daily Multi-Vitamin 1 tab PO QDAY 12/22/24 tablet) atorvastatin 40 mg tablet (Lipitor) 40 mg PO QPM #30 t abs 12/08/24 12/22/24 donepezil 5 mg tablet 5 mg PO QDAY #90 tabs 12/22/24 omeprazole 20 mg capsule,delayed 20 mg PO QDAY #90 cap s 12/08/24 12/22/24 release clopidogrel 75 mg tablet mg 12/22/24 nitrofurantoin 100 mg PO BID 5 days #10 cap s 12/22/24 monohydrate/macrocrystals 100 mg capsule (Macrobid) ondansetron 4 mg disintegrating 4 mg PO Q8H #14 tabs 1 tablet Allergies Allergies Allergy/AdvReac Type Severity Reaction Status Date / Time Penicillins Allergy Mild Rash Verified 12/22/24 18:39 PFSH Active Problems All Active Problems (Updated 01/03/25 @ 19:50 by LEEROY Garcia) Metabolic encephalopathy (Acute) Encephalopathy (Acute) Bacterial UTI (Acute) Nausea vomiting and diarrhea (Acute) Acute UTI (Acute) Onychomycosis (Chronic) Hyperlipemia (Chronic) Balance problem (Chronic) Alcohol dependence (Chronic) GERD (gastroesophageal reflux disease) (Chronic) Allergic rhinitis (Chronic) Weakness of left side of body (Chronic) Memory impairment (Chronic) History of lacunar cerebrovascular accident (Chronic) Medical History Medical History (Updated 01/03/25 @ 19:50 by LEEROY Garcia) Chronic constipation Hypertriglyceridemia Osteopenia ZAYNAB (obstructive sleep apnea) not using CPAP Cardiomegaly Diaphragmatic paralysis Lacunar infarct, acute (01/2023) Surgical History Surgical History History of arthroplasty of right knee 2012 History of arthroplasty of left knee 11/12/2011 - Dr. Corazon Long Right knee meniscal tear repaired History of surgery left 5th toe (12/2009) Family History Family History Mother CVA (cerebral vascular accident) Father Suicide Brother Alcoholism AMI (acute myocardial infarction) Social History Social History Smoking Status: Former smoker If you are a former smoker, when did you quit? (Date/Year): 60+ years ago Second hand tobacco smoke exposure: Yes Do you dip or chew tobacco?: No Do you vape?: No Living arrangement: At home Marital Status: Single Living Condition: With family Support Person: Yes Physical Activity: None Level: Independent Do you feel safe in your home environment?: Yes History of physical, verbal, emotional, or financial abuse?: No ETOH Use: Liquor Frequency: Daily Number of drinks/day: 1 Number of days/week: 7 Substance Use: denies use POLST Patient has POLST: No Exam Exam Vital Signs: Vital Signs x48h Temp Pulse Resp BP Pulse Ox 01/03/25 18:47 35.8 C L 65 18 147/80 H 95 01/03/25 16:39 37 C 72 17 140/70 H 100 Constitutional Appears stated age, resting comfortably, no acute distress. HENMT normocephalic, hearing grossly normal bilaterally and external ears normal Eyes PERRL, EOMs intact bilaterally, conjunctivae normal and normal visual laura by confrontation Neck/C-Spine visual inspection normal, cervical full ROM noted, supple and no meningeal signs Respiratory breath sounds equal bilaterally, normal respiratory effort and clear to auscultation bilaterally Cardiovascular normal heart rate noted, regular rhythm noted, no murmur and peripheral pulses 2+ throughout Gastrointestinal abdomen normal to inspection, abdomen soft to palpation and nontender to palpation Genitourinary no CVA tenderness and bladder normal to palpation Extremities normal to inspection, full ROM and no joint enlargement Neurology Alert to city, month, year. Cranial nerves II to XII are intact and symmetric. Strength is 5 out of 5 in bilateral upper and lower extremities. Sensation intact. Psychiatry Pleasant, logical, though forgetful in conversation. Skin skin color normal Results Vitals Vitals: Vital Signs - 24 hr 01/03/25 16:39 01/03/25 18:47 01/03/25 18:56 Temperature 37 C 35.8 C L Temperature Source Tympanic Temporal Artery Scan Pulse Rate 72 65 Respiratory Rate 17 18 Blood Pressure 140/70 H 147/80 H O2 Saturation 100 95 O2 Source Room air Room air Pain Intensity 0 8 Oxygen O2 Source Room air Labs Labs: Laboratory Tests 01/03/25 01/03/25 17:42 18:31 WBC 4.5 L RBC 4.54 Hgb 13.7 Hct 41.4 MCV 91.2 MCH 30.2 MCHC 33.1 RDW 12.5 Plt Count 177 MPV 9.9 Neut # (Auto) 3.5 Lymph # (Auto) 0.4 L Ector # (Auto) 0.3 Eos # (Auto) 0.2 Baso # (Auto) 0.0 Absolute Nucleated RBC 0.00 Nucleated RBC % 0.0 Sodium 140 Potassium 3.5 Chloride 107 Carbon Dioxide 27 Anion Gap 6.0 BUN 18 Creatinine 0.7 Estimated GFR (MDRD) 80 L Glucose 149 H Calcium 9.1 Magnesium 1.8 Total Bilirubin 1.4 H AST 132 H ALT 81 H Alkaline Phosphatase 101 Total Protein 6.4 Albumin 4.1 Globulin 2.3 Albumin/Globulin Ratio 1.8 Urine Color DARK YELLOW Urine Clarity HAZY Urine pH 6.0 Ur Specific [place] 1.030 Urine Protein NEGATIVE Urine Glucose (UA) NEGATIVE Urine Ketones NEGATIVE Urine Occult Blood MODERATE H Urine Nitrite POSITIVE H Urine Bilirubin S Urine Urobilinogen 2 H Ur Leukocyte Esterase SMALL H Urine RBC 0-5 Urine WBC 6-10 H Ur Squamous Epith Cells FEW Squamous Urine Crystals 6-10 Calcium Oxalate Urine Bacteria Many H Ur Microscopic Review INDICATED Urine Culture Comments INDICATED PD Medical Decision Making ED course ED course: Assessment: Patient is a pleasant 84-year-old female with history of dementia, presenting with worsening mental status. She is alert and oriented, but is forgetful in conversation, does not seem to remember basic events, and daughter shares that there are concerns about patient's day-to-day operations with worsening confusion, forgetfulness. Has not been taking medications normally. Not eating her food as she normally would. Daughter shares this is a departure from her normal baseline. DDx: Includes was not limited to, dementia, encephalopathy, UTI, UTI associated cephalopathy, electrolyte abnormality, stroke, stroke sequelae, stroke recrudescence, intracranial mass, subdural hemorrhage, volume depletion, dehydration, etc. Workup: CBC unremarkable. CMP grossly unremarkable, T. bili mildly elevated at 1.4. AST 132, ALT 81. Urine studies grossly infected with moderate blood, positive nitrites, positive leukocyte esterase, white blood cells present, many bacteria seen. Culture pending. CT head shows no acute intracranial abnormality. Atrophy and chronic ischemic changes are seen. Treatment: Rocephin 1 g. Tylenol 1000 mL (endorsing headache during stay). Discussion: Patient appears to have dementia at baseline, but likely has ongoing encephalopathy/delirium in the setting of untreated UTI. Gave first dose of Rocephin in the ER. Otherwise laboratory workup and CT head are grossly unremarkable. Has a mild transaminitis. Given patient's safe concerns at home, and daughter's concerns for her ability to take care of her with ongoing confusion which is likely somewhat reversible with clearance of UTI, recommended admission to the hospital for further treatment, and safe discharge planning. Patient and daughter agreeable to plan. Hospitalist service excepted this patient shortly before the end of my shift. At time my signout she was awaiting transfer to the floor. Discharge Plan Discharge Patient Disposition: 66 [facility] DC/Xfer Condition: Good Clinical Impression: Bacterial UTI, Encephalopathy Interventions: ED Transfer Assessment Last Done: 01/03/25 20:04 Vitals documented within 30 minutes of discharge?: Yes
[2025-01-03] MEDS ORDERED: cefTRIAXone 1 GM VIAL ONE (19:19)
[2025-01-03] MEDS: cefTRIAXone 1 GM in SODIUM CHLORIDE 0.9% MINIBAG 100 ML IV STA (19:29)
--- NOTE | 2025-01-03 19:39 | HISTORY & PHYSICAL EXAMINATION ---
Chief Complaint Chief Complaint Chief Complaint: confusion History of Present Illness Admitted From Admitted From:: home History Obtained From Records Reviewed: PCP notes History obtained from: patient and daughter Binta at bedside Exam Limitations: patient with confusion History of Present Illness HPI Comment/Other: 84F with PMHx dementia, CVA and recurrent UTI presents to the ED this evening with confusion. She has not been feeling well for several day. She had had fatigue and decreased appetite. her daughter decided to bring her in this evening because she did not seem like herself. She has not been running any fever. she has had some loose stool, no vomiting no back pain. she was prescribed Macrobid for UTI that was diagnosed on 12/22, but daughter thinks that she did not take the pills. Patient insists that she did. She was recently restarted on Donazepil. daughter states that she has been taking it for 3 weeks or less. She used to drink alcohol, but daughter states that patient no longer drinks. she does not use other substances. Her daughter Neda is her surrogate medical decision maker. She states that she does have a POLST that is DNR/Selective treatment. I am able to find it in the old EMR, and it has been moved into the chart. Meds/Allgy Home Medications Ambulatory Orders Medication Instructions Recorded Confirmed aspirin 81 mg tablet,delayed 81 mg PO DAILY #30 tabs 1 03/23/22 12/22/24 release cholecalciferol (vitamin D3) 25 25 mcg PO QDAY 5 12/22/24 mcg (1,000 unit) capsule dorzolamide 2 % eye drops 1 drp ophthalmic (eye) QDAY 08/25/24 12/22/24 multivitamin (Daily Multi-Vitamin 1 tab PO QDAY 12/22/24 tablet) atorvastatin 40 mg tablet (Lipitor) 40 mg PO QPM #30 t abs 12/08/24 12/22/24 donepezil 5 mg tablet 5 mg PO QDAY #90 tabs 12/22/24 omeprazole 20 mg capsule,delayed 20 mg PO QDAY #90 cap s 12/08/24 12/22/24 release clopidogrel 75 mg tablet mg 12/22/24 nitrofurantoin 100 mg PO BID 5 days #10 cap s 12/22/24 monohydrate/macrocrystals 100 mg capsule (Macrobid) ondansetron 4 mg disintegrating 4 mg PO Q8H #14 tabs 1 tablet Allergies Allergies Allergy/AdvReac Type Severity Reaction Status Date / Time Penicillins Allergy Mild Rash Verified 12/22/24 18:39 PFSH Active Problems All Active Problems (Updated 01/03/25 @ 19:50 by LEEROY Garcia) Metabolic encephalopathy (Acute) Encephalopathy (Acute) Bacterial UTI (Acute) Nausea vomiting and diarrhea (Acute) Acute UTI (Acute) Onychomycosis (Chronic) Hyperlipemia (Chronic) Balance problem (Chronic) Alcohol dependence (Chronic) GERD (gastroesophageal reflux disease) (Chronic) Allergic rhinitis (Chronic) Weakness of left side of body (Chronic) Memory impairment (Chronic) History of lacunar cerebrovascular accident (Chronic) Medical History Medical History (Updated 01/03/25 @ 19:50 by LEEROY Garcia) Chronic constipation Hypertriglyceridemia Osteopenia ZAYNAB (obstructive sleep apnea) not using CPAP Cardiomegaly Diaphragmatic paralysis Lacunar infarct, acute (01/2023) Surgical History Surgical History History of arthroplasty of right knee 2013 History of arthroplasty of left knee 11/12/2011 - Dr. Corazon Long Right knee meniscal tear repaired History of surgery left 5th toe (12/2009) Family History Family History Mother CVA (cerebral vascular accident) Father Suicide Brother Alcoholism AMI (acute myocardial infarction) Social History Social History Smoking Status: Former smoker If you are a former smoker, when did you quit? (Date/Year): 60+ years ago Second hand tobacco smoke exposure: Yes Do you dip or chew tobacco?: No Do you vape?: No Living arrangement: At home Marital Status: Single Living Condition: With family Support Person: Yes Physical Activity: None Level: Independent Do you feel safe in your home environment?: Yes History of physical, verbal, emotional, or financial abuse?: No ETOH Use: Liquor Frequency: Daily Number of drinks/day: 1 Number of days/week: 7 Substance Use: denies use POLST Patient has POLST: Yes POLST on file?: Yes POLST CPR Status: Do Not Attempt Resuscitation (DNAR) / Allow Natural Level of Medical Intervention: Selective Treatment Review of Systems Status of ROS: 10 or more systems reviewed and unremarkable except as noted in history and below Prior Level of Functionality: uses a walker, does not drive. lives with daughter Exam Exam Vital Signs: Vital Signs x48h Temp Pulse Resp BP Pulse Ox 01/03/25 18:47 35.8 C L 65 18 147/80 H 95 01/03/25 16:39 37 C 72 17 140/70 H 100 Constitutional normal general appearance and no apparent distress HENMT normocephalic, head/scalp atraumatic, oropharynx normal and dentition normal Eyes PERRL and conjunctivae normal Neck/C-Spine visual inspection normal Lymph no lymphadenopathy noted Respiratory breath sounds equal bilaterally, normal respiratory effort and clear to auscultation bilaterally Cardiovascular normal heart rate noted and regular rhythm noted Gastrointestinal abdomen normal to inspection and abdomen soft to palpation Genitourinary no CVA tenderness and bladder normal to palpation Extremities normal to inspection and normal to palpation Neurology speech normal and GCS 15 (GCS 14. -1 for confusion) Psychiatry mental status grossly normal, orientation abnormal and memory abnormal inconsistencies in history that I would not have picked up if daughter had not gently corrected patieint Skin skin color normal and no rash Conclusion/Plan Problem List (1) Metabolic encephalopathy: Plan: 84 yo female who presents to ED, not feeling well, urinary frequency and confusion. she was prescribed abx for UTI and reportedly did not take them. This was on 12/22. Cultures grew out giron sensitive E coli. She is confused, disoriented to time, although improving since initial evaluation by ED MD. She has a hx of CVA and dementia, recently started on donazepil. She has been acutely worse at home . She has a negative CT head. I explained to the patient and her daughter that I would admit her overnight to OBS status for further evalution of her encephalopathy. My plan is to discharge her home tomorrow afternoon. (2) Acute UTI: Plan: hx non complaince with treatment. She does not have any signs of sepsis. no hypotension, tachycardia, elevated WBC. She has some frequency of urination. She has positive UA, and cultures from 12/22 showing hx giron sensitive E coli. I avelina continue rocephin treatment and follow urine cultures. I will likely dc her to home tomorrow to complete a course of oral abx. Plan I have spent 78 minutes in the care of this patient today. This includes time [id number], review and ordering of diagnostic imaging and laboratory studies and consultation with other providers. Lab Results Lab results reviewed: Yes 01/03/25 17:42 01/03/25 17:42 Diagnostic Imaging Results Diagnostic Imaging Results: positive Final report reviewed Diagnostic Imaging Results Comments: CT head negative For acute findings Core Measures Anticipated LOS I expect patient to be DC'd or transferred within 96 hours.: Yes Issues Hospital Issues and Management Plan: Metabolic encephalopathy likely secondary to acute urinary tract infection. Will admit the patient to observation status for further observation of her mental status and treatment of a urinary tract infection. DVT/VTE - Prophylaxis VTE/DVT Device ordered at admit?: Yes VTE/DVT Prophylaxis med ordered at admit?: Yes
[2025-01-03] MEDS ORDERED: ACETAMINOPHEN 325 MG TABLET PO PRN (20:18)
[2025-01-03] MEDS ORDERED: ONDANSETRON ODT 4 MG TABLET TL PRN (20:18)
[2025-01-04] MEDS: SODIUM CHLORIDE FLUSH 0.9% 10 ML SYRINGE IVP PRN (01:05)
[2025-01-04] MEDS: SODIUM CHLORIDE FLUSH 0.9% 10 ML SYRINGE IVP SCH (01:15)
[2025-01-04 04:58] LABS: HCT - HEMATOCRIT 39.4 % (37.0-47.0); HGB - HEMOGLOBIN 13.0 g/dL (12.0-16.0); MEAN PLATELET VOLUME 10.3 fL (7.9-10.8); NRBC ABSOLUTE COUNT (AUTO) 0.00 x10^3/uL; NUCLEATED RED BLOOD CELLS AUTO 0.0 /100WBC; PLT - PLATELET COUNT 172 10^3/uL (130-450); RED CELL DISTRIBUTION WIDTH 12.5 % (12.0-15.0)
[2025-01-04 05:23] LABS: BUN - BLOOD UREA NITROGEN 14.0 mg/dL (6-20); CARBON DIOXIDE - CO2 25.0 mmol/L (21-32); CREATININE 0.6 mg/dL (0.6-1.3); GFR - MDRD 95.0 (>89)
[2025-01-04] MEDS: ENOXAPARIN 40 MG/0.4 ML SYRINGE SUBQ SCH (08:48)
[2025-01-04] MEDS: cefTRIAXone 1 GM VIAL IVP SCH (08:49)
[2025-01-04] MEDS: POTASSIUM CHLOR 10 MEQ/100 ML 10 MEQ/100 ML BAG IV SCH (11:15)
--- NOTE | 2025-01-04 12:28 | Discharge Summary ---
Discharge Summary Admit Date: 01/03/25 Discharge Date: 01/04/25 Discharging Provider: Greta Brand PA-C Primary Care Provider: Alana Ye MD Code Status: Do Not Attempt Resuscitation DIAGNOSES Discharge Diagnoses with Status of Each Condition: Metabolic encephalopathy, resolved Urinary tract infection, treated, need to follow-up on cultures. Hypokalemia, resolved should have repeat BMP in 1 week. HPI History of Present Illness: 84F with PMHx dementia, CVA and recurrent UTI presents to the ED this evening with confusion. She has not been feeling well for several day. She had had fatigue and decreased appetite. her daughter decided to bring her in this evening because she did not seem like herself. She has not been running any fever. she has had some loose stool, no vomiting no back pain. she was prescribed Macrobid for UTI that was diagnosed on 12/22, but daughter thinks that she did not take the pills. Patient insists that she did. She was recently restarted on Donazepil. daughter states that she has been taking it for 3 weeks or less. She used to drink alcohol, but daughter states that patient no longer drinks. she does not use other substances. Her daughter Neda is her surrogate medical decision maker. She states that she does have a POLST that is DNR/Selective treatment. I am able to find it in the old EMR, and it has been moved into the chart. HOSPITAL COURSE Hospital Course: Patient came in with some encephalopathy. She has a past medical history of dementia. She was disoriented to time but oriented to self place and situation. She had been diagnosed with a urinary tract infection on 12 22 and according to her daughter did not complete antibiotic therapy. She is not always compliant with her medications. She was admitted for overnight observation for metabolic encephalopathy likely secondary to urinary tract infection. She received 2 doses of IV Rocephin. Her previous cultures had grown out pansensitive E. coli and her cultures taken in the emergency department at the time of admission where showing greater than 100,000 colony-forming units of gram-negative rods. Identity pending. Patient improved overnight and felt ready to go home the next afternoon. She did have some hypokalemia down to 3.0. This was repleted with 40 mill equivalents of KCl IV and her potassium prior to discharge was 4.0. Looking through her previous labs I do not see any history of hypokalemia, therefore my decision was not started her on chronic therapy but rather to have her follow-up with her PCP for recheck. ALLERGIES Allergies Allergy/AdvReac Type Severity Reaction Status Date / Time Penicillins Allergy Mild Rash Verified 12/22/24 18:39 MEDICATIONS Ambulatory Orders Medication Instructions Recorded Confirmed aspirin 81 mg tablet,delayed 81 mg PO DAILY #30 tabs 1 03/23/22 01/04/25 release cholecalciferol (vitamin D3) 25 25 mcg PO DAILY 01/04/25 mcg (1,000 unit) capsule multivitamin (Daily Multi-Vitamin 1 tab PO DAILY 08/2501/04/25 tablet) atorvastatin 40 mg tablet (Lipitor) 40 mg PO QPM #30 t abs 12/08/24 01/04/25 clopidogrel 75 mg tablet 75 mg PO DAILY 12/22/2412/17 donepezil 5 mg tablet 5 mg PO DAILY 01/04/2501/04 dorzolamide 22.3 mg-timolol 6.8 1 drp ophthalmic (eye) BID 01/04/25 01/04/25 mg/mL eye drops nitrofurantoin 100 mg PO BID #14 caps 01/04 monohydrate/macrocrystals 100 mg capsule (Macrobid) omeprazole 20 mg capsule,delayed 20 mg PO DAILY 01/04/25 release PHYSICAL EXAM AT DISCHARGE Vital Signs: Vital Signs x48h Temp Pulse Resp BP Pulse Ox 01/04/25 19:09 36.7 C 78 20 140/65 H 96 LABS 01/04/25 04:31 01/04/25 17:06 DIAGNOSTIC IMAGING Diagnostic Imaging Results Comments: CT head negative FOLLOW UP Follow Up: PCP 7 to 10 days with recheck BMP. TIME SPENT Time Spent in Discharge (Minutes): 35 Discharge Plan Discharge Patient Disposition: Home, Self Care Condition: Good Prescriptions: New nitrofurantoin monohyd/m-cryst [Macrobid] 100 mg capsule 100 mg PO BID Qty: 14 0RF Rx Instructions: must administer with a meal/food Continued aspirin 81 MG tablet,delayed release (DR/EC) 81 mg PO DAILY Qty: 30 0RF clopidogrel 75 mg tablet 75 mg PO DAILY Patient Comments: TAKE 1 TABLET BY MOUTH EVERY DAY dorzolamide-timolol 22.3-6.8 mg/mL drops 1 drp ophthalmic (eye) BID Patient Comments: INSTILL 1 DROP BOTH EYES TWICE DAILY donepezil 5 mg tablet 5 mg PO DAILY omeprazole 20 mg capsule,delayed release(DR/EC) 20 mg PO DAILY cholecalciferol (vitamin D3) 25 mcg (1,000 unit) capsule 25 mcg PO DAILY multivitamin [Daily Multi-Vitamin] Tablet 1 tab PO DAILY atorvastatin [Lipitor] 40 mg tablet 40 mg PO QPM Qty: 30 2RF Diet: Regular Interventions: Belongings Inventory Last Done: 01/03/25 20:37 Discharge Last Done: 01/04/25 19:09 Discharge Checklist - Nursing Last Done: 01/04/25 19:09 Discharge Vital Signs (30 Minutes) Last Done: 01/04/25 19:09 Health Concerns: You came into the hospital because you were having some confusion and we believe this was related to a urinary tract infection. You had a urinary tract infection recently, but there is some question about whether or not you took your antibiotics. Looking at your most recent urine cultures which were done on December 22, the germ that you had in your urine should be sensitive to an antibiotic called Macrobid. I took additional urine cultures when you came in through the emergency department last night and these will take several more days to finalize. But, it is reasonable at this time to start you on Macrobid. Your confusion has gotten better. I know that you are home alone all day and this can be difficult. I know your daughter is also working to try to get you some companionship at home and somebody maybe to help you do things around the house. It is important that you follow-up with primary care. Your potassium was low this morning and it is unclear exactly why that was. You are not on any medications that can cause low potassium. I want you to make sure to eat plenty of fresh fruits and vegetables and you should see your primary care doctor within [address] Ye a copy of this document to let her know that she needs to see you. Additionally I will let the transition planning nurse know that you need to be seen within 7 days and you need to have your potassium checked. Print Language: Romanian Patient Instructions: Anatomy of the Female Urinary Tract Stand Alone Forms: PCP List Follow-up Care: Alana Ye MD [Primary Care Provider, Family Practice] Vitals documented within 30 minutes of discharge?: Yes
[2025-01-04 12:57] VITALS: O2SAT 96
--- NOTE | 2025-01-04 13:31 | PHARMACY PROGRESS NOTE ---
Best Possible Medication History Admit Date and Time: 01/03/25 190 Home Medications Medication Instructions Recorded Confirmed Type aspirin 81 mg tablet,delayed 81 mg PO DAILY #30 tabs 1 03/23/22 01/04/25 Rx release cholecalciferol (vitamin D3) 25 25 mcg PO DAILY 01/04/25 History mcg (1,000 unit) capsule multivitamin (Daily Multi-Vitamin 1 tab PO DAILY 08/2501/04/25 History tablet) atorvastatin 40 mg tablet (Lipitor) 40 mg PO QPM #30 t abs 12/08/24 01/04/25 Rx clopidogrel 75 mg tablet 75 mg PO DAILY 12/22/2412/17 History donepezil 5 mg tablet 5 mg PO DAILY 01/04/2501/04 History dorzolamide 22.3 mg-timolol 6.8 1 drp ophthalmic (eye) BID 01/04/25 01/04/25 History mg/mL eye drops omeprazole 20 mg capsule,delayed 20 mg PO DAILY 01/04/25 History release Processed by: Pharmacy Medications reviewed in ED?: Yes Medication History completed: Yes Patient Interview: Completed Secondary Source(s): Insurance records [facility] Statement: As the person ultimately responsible for medication therapy, providers are able to order a medication from an existing home medication list in [facility] via the "Reconcile Routine" prior to Confirmation of that medication by direct support specialist. Such practice is discouraged except when the physician, in their clinical judgment, deems that a medical need exists for a medication without regard to previous use.
[2025-01-04 17:26] LABS: BUN - BLOOD UREA NITROGEN 13.0 mg/dL (6-20); CARBON DIOXIDE - CO2 28.0 mmol/L (21-32); CREATININE 0.7 mg/dL (0.6-1.3); GFR - MDRD 80.0 (>89)
[2025-01-04 19:11] VITALS: BP 140/65; TEMP 98.1
== END 2025-01-04 19:11 | disposition home or self-care (01) ==
LOC: ED 16:30 → MS3 16:30
PROVIDERS: ADMIT Physician Assistant Medical; ATTEND Physician Assistant Medical
DX: B96.89 Other specified bacterial agents as the cause of diseases classified elsewhere; Z87.891 Personal history of nicotine dependence; F03.90 Unspecified dementia, unspecified severity, without behavioral disturbance, psychotic disturbance, mood disturbance, and anxiety; Z79.899 Other long term (current) drug therapy; Z66 Do not resuscitate; Z86.73 Personal history of transient ischemic attack (TIA), and cerebral infarction without residual deficits; E87.6 Hypokalemia; N39.0 Urinary tract infection, site not specified; Z79.82 Long term (current) use of aspirin; G93.41 Metabolic encephalopathy